=== PATIENT | male | born 1965 | race African-American/Black ===

== ENCOUNTER 2024-12-31 10:07 | Inpatient (IN) ==
--- NOTE | 2024-12-31 11:04 | DR.EXTPAIN ---
HPI Time seen Time Seen by Provider: 12/31/24 11:04 PCP Primary Care Physician: [facility] Complaint/Symptoms Chief Complaint:: Patient sent from [facility] @ [facility] with pain and edema to left forearm x 3 weeks. He has a 50 cent size ulcer left proximal anterior forearm. He states he scratched it in the window of his truck. COVID-19 Coronavirus risk:travel/contact w/high risk person: No Has patient experienced Coronavirus symptoms: No Source History Provided: Patient and Other Mode of arrival Mode of Arrival: Ambulatory Timing Onset of Chief Complaint: 12/10/24 PMH PMH Past Medical History: Yes Past Medical History: Diabetes, Headaches and Hypertension Past Surgical History: No Family History History of Family Medical Conditions: No Social History Does patient currently use any type of tobacco product: No Have you used tobacco products in the last 12 months: No Type of Tobacco Use: None Does any household member use tobacco: No Alcohol Use: None Do you use any recreational Drugs:: No Lives With: Alone Lives Where: Home Travel Risk Coronavirus risk:travel/contact w/high risk person: No Has patient experienced Coronavirus symptoms: No Infectious screening In the last 2 months have you had wt loss of >10#?: NO Have you had fever, night sweats or hemotysis?: No Have you traveled outside the country in the last 6 months?: No Isolation: Standard PE Vital Signs Vitals: Vital Signs Temperature 97.7 F Pulse Rate 105 Respiratory Rate 18 Respiratory Rate 17 Blood Pressure 144/75 Blood Pressure 181/79 O2 Sat by Pulse Oximetry 99 ROR Labs Reviewed 12/31/24 11:04 12/31/24 11:04 Laboratory: WBC 20.2 X10^3/uL (3.6-10.0) H 12/31/24 11:04 RBC 4.28 X10^6/uL (4.7-6.0) L 12/31/24 11:04 Hgb 11.5 g/dL (13.5-18.0) L 12/31/24 11:04 Hct 34.4 % (42.0-54.0) L 12/31/24 11:04 MCV 80.5 fL (80.0-100.0) 12/31/24 11:04 MCH 27.0 pg (27.0-34.0) 12/31/24 11:04 MCHC 33.5 g/dL (33.0-35.0) 12/31/24 11:04 RDW 15.6 % (11.6-16.5) 12/31/24 11:04 Plt Count 323 X10^3/uL (150.0-450.0) 12/31/24 11:04 Plt Count Comment Adequate (ADEQUATE) 12/31/24 11:04 MPV 9.7 fL (7.4-11.0) 12/31/24 11:04 Neut % (Auto) 83.8 % (42.0-75.0) H 12/31/24 11:04 Lymph % (Auto) 5.7 % (21.0-51.0) L 12/31/24 11:04 [place] % (Auto) 8.7 % (0.0-13.0) 12/31/24 11:04 Eos % (Auto) 0.5 % (0.9-2.9) L 12/31/24 11:04 Baso % (Auto) 1.3 % (0.2-1.0) H 12/31/24 11:04 Neut # (Auto) 16.9 x10^3/uL (2.2-4.8) H 12/31/24 11:04 Lymph # (Auto) 1.2 X10^3/uL (1.3-2.9) L 12/31/24 11:04 [place] # (Auto) 1.8 x10^3/uL (0.3-0.8) H 12/31/24 11:04 Eos # (Auto) 0.1 x10^3/uL (0.0-0.2) 12/31/24 11:04 Baso # (Auto) 0.3 X10^3/uL (0.0-0.1) H 12/31/24 11:04 Absolute Nucleated RBC 0.1 /100WBC 12/31/24 11:04 Total Counted 100 12/31/24 11:04 Neutrophils % (Manual) 69 % (39-76) 12/31/24 11:04 Band Neutrophils % 11 % (0-10) H 12/31/24 11:04 Lymphocytes % (Manual) 13 % (13-43) 12/31/24 11:04 Monocytes % (Manual) 7 % (4-9) 12/31/24 11:04 Atypical Lymphocytes Few 12/31/24 11:04 Plt Morphology Comment Normal (NORMAL) 12/31/24 11:04 RBC Morphology Normal (NORMAL) 12/31/24 11:04 Sodium 126 mmol/L (136-145) L 12/31/24 11:04 Corrected Sodium 134 mmol/L (136-145) L 12/31/24 11:04 Potassium 3.7 mmol/L (3.5-5.1) 12/31/24 11:04 Chloride 88 mmol/L (98-107) L 12/31/24 11:04 Carbon Dioxide 29.1 mmol/L (21-32) 12/31/24 11:04 BUN 16 mg/dL (7-18) 12/31/24 11:04 Creatinine 1.28 mg/dL (0.70-1.30) 12/31/24 11:04 Est GFR (MDRD) Af Amer > 60 (>60) 12/31/24 11:04 Est GFR (MDRD) Non-Af > 60 (>60) 12/31/24 11:04 Glucose 431 mg/dL (65-99) H 12/31/24 11:04 Lactic Acid 2.1 mmol/L (0.4-2.0) H 12/31/24 11:04 Calcium 8.5 mg/dL (8.5-10.1) 12/31/24 11:04 Corrected Calcium 9.9 mg/dL (8.5-10.1) 12/31/24 11:04 Total Bilirubin 1.00 mg/dL (0.2-1.0) 12/31/24 11:04 AST 21 Units/L (15-37) 12/31/24 11:04 ALT 35 Units/L (12-78) 12/31/24 11:04 Alkaline Phosphatase 130 Units/L (46-116) H 12/31/24 11:04 B-Natriuretic Peptide 93.5 pg/mL (0-79) H 12/31/24 11:04 Total Protein 8.9 g/dL (6.4-8.2) H 12/31/24 11:04 Albumin 2.3 g/dL (3.4-5.0) L 12/31/24 11:04 Globulin 6.6 g/dL (2.5-4.5) H 12/31/24 11:04 Albumin/Globulin Ratio 0.3 Ratio (1.1-2.1) L 12/31/24 11:04 Acetone, Semi-Quant Negative (NEGATIVE) 12/31/24 11:04 Opioid Opioid Risk Tool Age (Wes box if 16-45): No History of Preadolescent Sexual Abuse: No Total: 0 Total Score Risk Category: Low Risk Copyright: Agustin KEY predicting aberrant behaviors Discharge Plan Diagnosis Discharge Problem: Sepsis, Left arm cellulitis Discharge Plan Patient Disposition: ADMITTED INPATIENT Condition: Stable
[2024-12-31 11:20] LABS: MEAN PLATELET VOLUME 9.7 fL (7.4-11.0); RED CELL DISTRIBUTION WIDTH 15.6 % (11.6-16.5)
[2024-12-31] MEDS: TORADOL 30 MG VIAL IVP ONE (11:23)
[2024-12-31 11:28] LABS: COR CA(FOR HYPOALB) 9.9 mg/dL (8.5-10.1); COR NA(FOR HYPERGLY) 134 mmol/L (136-145); CREATININE 1.28 mg/dL (0.70-1.30); eGFR NON BLACK RACES > 60 (>60)
[2024-12-31 11:47] LABS: BAND NEUTROPHILS % 11 % (0-10); PLATELET MORPHOLOGY COMMENT NORMAL (NORMAL)
[2024-12-31] MEDS: VANCOMYCIN IV *PREMIX 1 G/200 ML BAG 1 G/200 ML PIGGYBACK IV ONE ×2 (12:14→14:17)
[2024-12-31] MEDS: NS 1,000 ML IV 1,000 ML IV SCH (12:15)
[2024-12-31] MEDS ORDERED: PRECEDEX INJ VIAL ONE (13:04)
[2024-12-31] MEDS ORDERED: XYLOCAINE 2 % (PLAIN) ONE (13:04)
[2024-12-31] MEDS ORDERED: ULTANE GAS IN ONE (13:04)
[2024-12-31] MEDS ORDERED: KETAMINE HCL ONE (13:04)
--- NOTE | 2024-12-31 13:54 | CT ---
EXAM: CT LEFT UPPER EXTREMITY WITHOUT IV CONTRAST HISTORY: left upper arm cellulitis; COMPARISON: Radiographs from same date TECHNIQUE: Axial CT images were obtained through the left upper extremity without IV contrast. Coronal and sagittal reformatted images were included. All CT scans at this facility use dose modulation, iterative reconstruction, and/or weight based dosing when appropriate to reduce radiation dose to as low as reasonably achievable. FINDINGS: Moderate diffuse left upper arm and forearm skin thickening with subcutaneous edema. There is clustered subcutaneous soft tissue gas dorsal to the elbow as well as the upper arm and proximal forearm over 13 cm distance. No focal cortical destruction or aggressive periosteal reaction. No large elbow effusion. IMPRESSION: Diffuse subcutaneous edema. Scattered dorsal soft tissue gas in the upper arm, elbow, and proximal forearm, concerning for necrotizing infection. THIS IS AN ELECTRONICALLY VERIFIED FINAL REPORT 12/31/2024 1:50 PM - Electronically signed by José Rdz MD
[2024-12-31] MEDS: CATAPRES TAB 0.1 MG PO ONE (14:03)
[2024-12-31] MEDS: NovoLIN R (or HumuLIN R) SUBCUT PRN (14:04)
[2024-12-31] MEDS: NS 1,000 ML IV 1,000 ML ONE (14:17)
[2024-12-31] MEDS: MERREM VIAL 1 G in NS 100 ML IV 100 ML IV SCH (15:43)
[2024-12-31] MEDS: NORMODYNE INJ 20 MG VIAL IV PRN (15:43)
[2024-12-31] MEDS: ZOFRAN INJ 4 MG VIAL ONE (16:41)
[2024-12-31] MEDS: FENTANYL VIAL INJ 100 mcg ONE (16:41)
[2024-12-31] MEDS: DIPRIVAN VIAL 20 ML ONE (16:41)
[2024-12-31] MEDS: VERSED ONE (16:41)
[2024-12-31] MEDS: PEPCID 20 MG VIAL ONE (16:56)
[2024-12-31] MEDS: VERSED IVP PRN (16:57)
[2024-12-31] MEDS: NS 1,000 ML IV 500 ML IV PRN (16:58)
[2024-12-31] MEDS: PEPCID 20 MG VIAL IVP PRN (17:00)
[2024-12-31] MEDS: ZOFRAN INJ 4 MG VIAL IVP PRN (17:00)
[2024-12-31] MEDS: DIPRIVAN VIAL 150 ML IVP PRN (17:04)
[2024-12-31] MEDS: KETAMINE HCL IV PRN (17:04)
[2024-12-31] MEDS ORDERED: XYLOCAINE 2 % (PLAIN) PRN (17:04)
[2024-12-31] MEDS: PRECEDEX INJ VIAL IVP PRN (17:04)
[2024-12-31] MEDS: FENTANYL VIAL INJ 100 mcg IVP PRN (17:04)
[2024-12-31] MEDS: OFIRMEV IV 1000 MG VIAL 1,000 MG/100 ML VIAL IV ONE (17:10)
[2024-12-31] MEDS: POLYMYXIN B SULFATE ONE (17:11)
[2024-12-31] MEDS: OFIRMEV IV 1000 MG VIAL 1,000 MG/100 ML VIAL IV PRN (17:20)
[2024-12-31] MEDS: NEO-SYNEPHRINE INJ IVP PRN (17:29)
[2024-12-31] MEDS ORDERED: DILAUDID INJ IVP PRN (17:30)
[2024-12-31] MEDS ORDERED: REGLAN INJ 10 MG VIAL IVP PRN (17:30)
[2024-12-31] MEDS ORDERED: BENADRYL INJ 50 MG VIAL IVP PRN (17:30)
[2024-12-31] MEDS ORDERED: ZOFRAN INJ 4 MG VIAL IVP PRN (17:30)
[2024-12-31] MEDS ORDERED: BARHEMSYS INJ IVP PRN (17:30)
[2024-12-31] MEDS: DILAUDID INJ IVP PRN (17:44)
[2024-12-31] MEDS ORDERED: MORPHINE SULFATE INJ 2 MG INJ IVP PRN (18:01)
[2024-12-31] MEDS ORDERED: NS 1/2 1,000 ML IV 1,000 ML IV ONE (18:28)
[2024-12-31] MEDS: CLEOCIN VIAL 600 MG 900 MG in D5W 50 ML IV 50 ML IV SCH (18:32)
[2024-12-31] MEDS: NS 1/2 1,000 ML IV 1,000 ML IV SCH (18:32)
[2024-12-31] MEDS: DILAUDID INJ ONE (18:37)
[2024-12-31] MEDS: TORADOL 30 MG VIAL ONE (18:38)
[2024-12-31] MEDS: VANCOMYCIN HCL 1 G in D5W 250 ML IV 250 ML IV SCH (20:23)
[2024-12-31] MEDS: SNACK - Diabetic Appropriate PO SCH (21:19)
[2025-01-01] MEDS: NS 250 ML IV 250 ML IV ONE (02:10)
[2025-01-01 04:52] LABS: MEAN PLATELET VOLUME 9.2 fL (7.4-11.0); RED CELL DISTRIBUTION WIDTH 15.5 % (11.6-16.5)
[2025-01-01 05:01] LABS: COR CA(FOR HYPOALB) 9.7 mg/dL (8.5-10.1); COR NA(FOR HYPERGLY) 132 mmol/L (136-145); CREATININE 1.11 mg/dL (0.70-1.30); eGFR NON BLACK RACES > 60 (>60)
--- NOTE | 2025-01-01 06:13 | RAD ---
EXAM: FOREARM, LEFT HISTORY: INFECTED FOREARM; COMPARISON: None. TECHNIQUE: Two-vi ew series of the left. FINDINGS: Normal alignment of the left forearm. No radiographic evidence of an acute fracture or cortical stress reaction. No periosteal reaction or bony erosion identified. Soft tissue edema of the forearm is demonstrated with small quantities of gas suspected along the dorsal margin around the elbow. A large olecranon process enthesophyte is noted. There is mild DJD of the elbow. Vascular calcifications are seen within the antecubital fossa. IMPRESSION: Generalized soft tissue edema of the forearm, in keeping with cellulitis, with small amounts of soft tissue gas questioned along the dorsal margin of the arm around the elbow, raising concern for localized necrotizing fasciitis. Surgical consultation is recommended No radiographic evidence osteomyelitis. Additional degenerative findings are detailed above THIS IS AN ELECTRONICALLY VERIFIED FINAL REPORT 01/01/2025 6:05 AM - Electronically signed by Phill Garcia MD
[2025-01-01] MEDS ORDERED: CONSULT PHARMACY - POTASSIUM & MAGNESIUM XX SCH (07:00)
[2025-01-01] MEDS: K-DUR TAB 20 MEQ PO SCH (08:04)
[2025-01-01] MEDS: MAG-OX TAB PO SCH (08:04)
--- NOTE | 2025-01-01 08:48 | DR.PROGNOT ---
HOSPITAL PROGRESS NOTE Progress Note for Day of: Progress Note Date: 01/01/25 Chief Complaint Chief Complaint: Left arm pain is less as well as the edema. Dressings are intact with no significant drainage. Cultures are showing staph cocci and gram-negative bacteria. White count is 18.1, blood sugar 326, BUN/creatinine and liver function tests are normal as well as the lactic acid. Patient is afebrile, the left arm is still edematous, all distal pulses are positive. Same IV antibiotics and will keep the dressing intact. Past Medical Family Social History Allergies: Allergies No Known Allergies Allergy (Verified 12/31/24 13:30) Vital Signs Vital Signs: Vital Signs Temperature 98.7 F Temperature 99.4 F Pulse Rate [Right Radial] 89 Pulse Rate [Right Radial] 89 Respiratory Rate 20 Respiratory Rate 19 Blood Pressure [Left Arm] 157/76 Blood Pressure [Left Arm] 156/72 O2 Sat by Pulse Oximetry 100 O2 Sat by Pulse Oximetry 99 Physical Exam Oriented: Normal Eyes: Normal Ear: Normal Nose: Normal Throat: Normal Respiratory: Normal Cardiovascular: Normal GI:Auscultation: Normal Skin: Other (Dressings are intact with normal range of motion of the hand and fingers.) Mood Description: Calm Speech Pattern: Clear, Appropriate and Delayed Laboratory and Diagnostics 01/01/25 04:33 01/01/25 04:33 Labs: 12/31/24 17:18 Arm - Left Wound Gram Stain - Final 12/31/24 13:24 Arm - Drainage Wound Gram Stain - Final Laboratory WBC 18.1 X10^3/uL (3.6-10.0) H 01/01/25 04:33 RBC 3.60 X10^6/uL (4.7-6.0) L 01/01/25 04:33 Hgb 10.0 g/dL (13.5-18.0) L 01/01/25 04:33 Hct 28.9 % (42.0-54.0) L 01/01/25 04:33 MCV 80.2 fL (80.0-100.0) 01/01/25 04:33 MCH 27.7 pg (27.0-34.0) 01/01/25 04:33 MCHC 34.5 g/dL (33.0-35.0) 01/01/25 04:33 RDW 15.5 % (11.6-16.5) 01/01/25 04:33 Plt Count 331 X10^3/uL (150.0-450.0) 01/01/25 04:33 Plt Count Comment Adequate (ADEQUATE) 12/31/24 11:04 MPV 9.2 fL (7.4-11.0) 01/01/25 04:33 Neut % (Auto) 78.7 % (42.0-75.0) H 01/01/25 04:33 Lymph % (Auto) 8.5 % (21.0-51.0) L 01/01/25 04:33 [place] % (Auto) 12.2 % (0.0-13.0) 01/01/25 04:33 Eos % (Auto) 0.5 % (0.9-2.9) L 01/01/25 04:33 Baso % (Auto) 0.1 % (0.2-1.0) L 01/01/25 04:33 Neut # (Auto) 14.2 x10^3/uL (2.2-4.8) H 01/01/25 04:33 Lymph # (Auto) 1.5 X10^3/uL (1.3-2.9) 01/01/25 04:33 [place] # (Auto) 2.2 x10^3/uL (0.3-0.8) H 01/01/25 04:33 Eos # (Auto) 0.1 x10^3/uL (0.0-0.2) 01/01/25 04:33 Baso # (Auto) 0.0 X10^3/uL (0.0-0.1) 01/01/25 04:33 Absolute Nucleated RBC 0.0 /100WBC 01/01/25 04:33 Total Counted 100 12/31/24 11:04 Neutrophils % (Manual) 69 % (39-76) 12/31/24 11:04 Band Neutrophils % 11 % (0-10) H 12/31/24 11:04 Lymphocytes % (Manual) 13 % (13-43) 12/31/24 11:04 Monocytes % (Manual) 7 % (4-9) 12/31/24 11:04 Atypical Lymphocytes Few 12/31/24 11:04 Plt Morphology Comment Normal (NORMAL) 12/31/24 11:04 RBC Morphology Normal (NORMAL) 12/31/24 11:04 Sodium 127 mmol/L (136-145) L 01/01/25 04:33 Corrected Sodium 132 mmol/L (136-145) L 01/01/25 04:33 Potassium 3.3 mmol/L (3.5-5.1) L 01/01/25 04:33 Chloride 91 mmol/L (98-107) L 01/01/25 04:33 Carbon Dioxide 27.6 mmol/L (21-32) 01/01/25 04:33 BUN 15 mg/dL (7-18) 01/01/25 04:33 Creatinine 1.11 mg/dL (0.70-1.30) 01/01/25 04:33 Est GFR (MDRD) Af Amer > 60 (>60) 01/01/25 04:33 Est GFR (MDRD) Non-Af > 60 (>60) 01/01/25 04:33 Glucose 306 mg/dL (65-99) H 01/01/25 04:33 POC Glucose (mg/dL) 288 mg/dL (65-99) H 01/01/25 05:16 Hemoglobin A1c 12.0 % 12/31/24 19:06 Lactic Acid 1.9 mmol/L (0.4-2.0) 12/31/24 23:21 Calcium 7.6 mg/dL (8.5-10.1) L 01/01/25 04:33 Corrected Calcium 9.7 mg/dL (8.5-10.1) 01/01/25 04:33 Magnesium 1.6 mg/dL (2.0-2.9) L 01/01/25 04:33 Total Bilirubin 1.10 mg/dL (0.2-1.0) H 01/01/25 04:33 AST 18 Units/L (15-37) 01/01/25 04:33 ALT 26 Units/L (12-78) 01/01/25 04:33 Alkaline Phosphatase 107 Units/L (46-116) 01/01/25 04:33 B-Natriuretic Peptide 93.5 pg/mL (0-79) H 12/31/24 11:04 Total Protein 7.1 g/dL (6.4-8.2) 01/01/25 04:33 Albumin 1.4 g/dL (3.4-5.0) L 01/01/25 04:33 Globulin 5.7 g/dL (2.5-4.5) H 01/01/25 04:33 Albumin/Globulin Ratio 0.2 Ratio (1.1-2.1) L 01/01/25 04:33 Acetone, Semi-Quant Negative (NEGATIVE) 12/31/24 11:04 Assessment and Plan 1: Deep abscesses and cellulitis left arm and forearm with infected skin ulcers. S/p debridement and drainage with packing. 2: Diabetes mellitus, on insulin coverage. Patient needs future follow-up by PCP. Problem Patient Problems: Patient Problems Left arm cellulitis (Acute) L03.114 Sepsis (Acute) A41.9
[2025-01-01] MEDS ORDERED: PHARMACY CONSULT XX SCH (09:00)
[2025-01-01] MEDS: LOVENOX INJ 40 MG SYR SC SCH (09:15)
[2025-01-01] MEDS: NS 1/2 1,000 ML IV 1,000 ML IV ONE (09:21)
[2025-01-01] MEDS: NS + KCL 20 MEQ/L 1,000 ML with MAGNESIUM SULFATE 50% INJ VIAL 1 G IV SCH (09:45)
[2025-01-01] MEDS: NORCO 10/325 TAB PO PRN (09:46)
[2025-01-01] MEDS: ZESTRIL TAB 5 MG PO SCH ×2 (09:46→22:12)
--- NOTE | 2025-01-01 09:57 | PCM.PROG ---
Progress Note Progress Note for Day of Date of Exam: 01/01/25 Subjective Subjective: Patient seen at bedside, no acute events overnight. He was admitted for severe left upper extremity necrotizing infection which required immediate surgical intervention. He underwent debridement yesterday. He has been doing well overnight. His pain has been well-controlled. His blood pressure has been elevated this morning. He states he has been diagnosed with hypertension and diabetes but does not take any medicines. He is currently on IV antibiotics, cultures pending. Labs/imaging reviewed: - WBC 18.1 hemoglobin 10 potassium 3.3 creatinine 1.11 magnesium 1.6 glucose 288 -A1c 12/31/2024 12% - Wound cultures pending - Blood cultures pending -CT left extremity reviewed Plan: Continue IV antibiotics, follow surgery recommendations. Keep arm elevated and in the sling. Follow-up pending cultures. Continue pain control. Switch morphine to [place]. Replace electrolytes as per protocol. Continue hydration. Continue sliding scale insulin. Add lisinopril 5 mg daily. Add metformin 500 mg BID. Wound care and dressing change as per nursing. Monitor a.m. labs and imaging. Time spent for clinical assessment, reviewing labs and imaging, physical exam, decision making and documentation greater than 45 minutes. Past Medical Family Social History Allergies: Allergies No Known Allergies Allergy (Verified 12/31/24 13:30) Vital Signs and I&O's Vital Signs: Vital Signs Temperature 98.7 F Temperature 99.4 F Pulse Rate [Right Radial] 89 Pulse Rate [Right Radial] 89 Respiratory Rate 20 Respiratory Rate 19 Blood Pressure [Left Arm] 157/76 Blood Pressure [Left Arm] 156/72 O2 Sat by Pulse Oximetry 100 O2 Sat by Pulse Oximetry 99 Intake and Output: Intake & Output 12/29/24 12/30/24 12/31/24 01/01/25 23:59 23:59 23:59 23:59 Intake Total 1700 / 1700 1683 / 1683 Output Total 1020 / 1020 1180 / 1180 Balance 680 / 680 503 / 503 Physical Exam Oriented: Normal Eyes: Normal Ear: Normal Nose: Normal Throat: Normal Respiratory: Normal Cardiovascular: Normal Auscultation: Bowel Sounds: Normal Palpation: Normal Tenderness: Normal Skin: Other (Dressings are intact with normal range of motion of the hand and fingers.) Musculoskeletal: Left, Arm and Forearm Psychiatric: Normal Mood Description: Calm Affect: Normal Speech Pattern: Clear and Appropriate Laboratory and Diagnostics 01/01/25 04:33 01/01/25 04:33 Labs: 12/31/24 17:18 Arm - Left Wound Gram Stain - Final 12/31/24 17:18 Arm - Left Wound Culture - Preliminary 12/31/24 17:19 Arm - Left Wound Culture - Preliminary 12/31/24 13:24 Arm - Drainage Wound Gram Stain - Final 12/31/24 13:24 Arm - Drainage Wound Culture - Preliminary Laboratory WBC 18.1 X10^3/uL (3.6-10.0) H 01/01/25 04:33 RBC 3.60 X10^6/uL (4.7-6.0) L 01/01/25 04:33 Hgb 10.0 g/dL (13.5-18.0) L 01/01/25 04:33 Hct 28.9 % (42.0-54.0) L 01/01/25 04:33 MCV 80.2 fL (80.0-100.0) 01/01/25 04:33 MCH 27.7 pg (27.0-34.0) 01/01/25 04:33 MCHC 34.5 g/dL (33.0-35.0) 01/01/25 04:33 RDW 15.5 % (11.6-16.5) 01/01/25 04:33 Plt Count 331 X10^3/uL (150.0-450.0) 01/01/25 04:33 Plt Count Comment Adequate (ADEQUATE) 12/31/24 11:04 MPV 9.2 fL (7.4-11.0) 01/01/25 04:33 Neut % (Auto) 78.7 % (42.0-75.0) H 01/01/25 04:33 Lymph % (Auto) 8.5 % (21.0-51.0) L 01/01/25 04:33 [place] % (Auto) 12.2 % (0.0-13.0) 01/01/25 04:33 Eos % (Auto) 0.5 % (0.9-2.9) L 01/01/25 04:33 Baso % (Auto) 0.1 % (0.2-1.0) L 01/01/25 04:33 Neut # (Auto) 14.2 x10^3/uL (2.2-4.8) H 01/01/25 04:33 Lymph # (Auto) 1.5 X10^3/uL (1.3-2.9) 01/01/25 04:33 [place] # (Auto) 2.2 x10^3/uL (0.3-0.8) H 01/01/25 04:33 Eos # (Auto) 0.1 x10^3/uL (0.0-0.2) 01/01/25 04:33 Baso # (Auto) 0.0 X10^3/uL (0.0-0.1) 01/01/25 04:33 Absolute Nucleated RBC 0.0 /100WBC 01/01/25 04:33 Total Counted 100 12/31/24 11:04 Neutrophils % (Manual) 69 % (39-76) 12/31/24 11:04 Band Neutrophils % 11 % (0-10) H 12/31/24 11:04 Lymphocytes % (Manual) 13 % (13-43) 12/31/24 11:04 Monocytes % (Manual) 7 % (4-9) 12/31/24 11:04 Atypical Lymphocytes Few 12/31/24 11:04 Plt Morphology Comment Normal (NORMAL) 12/31/24 11:04 RBC Morphology Normal (NORMAL) 12/31/24 11:04 Sodium 127 mmol/L (136-145) L 01/01/25 04:33 Corrected Sodium 132 mmol/L (136-145) L 01/01/25 04:33 Potassium 3.3 mmol/L (3.5-5.1) L 01/01/25 04:33 Chloride 91 mmol/L (98-107) L 01/01/25 04:33 Carbon Dioxide 27.6 mmol/L (21-32) 01/01/25 04:33 BUN 15 mg/dL (7-18) 01/01/25 04:33 Creatinine 1.11 mg/dL (0.70-1.30) 01/01/25 04:33 Est GFR (MDRD) Af Amer > 60 (>60) 01/01/25 04:33 Est GFR (MDRD) Non-Af > 60 (>60) 01/01/25 04:33 Glucose 306 mg/dL (65-99) H 01/01/25 04:33 POC Glucose (mg/dL) 288 mg/dL (65-99) H 01/01/25 05:16 Hemoglobin A1c 12.0 % 12/31/24 19:06 Lactic Acid 1.9 mmol/L (0.4-2.0) 12/31/24 23:21 Calcium 7.6 mg/dL (8.5-10.1) L 01/01/25 04:33 Corrected Calcium 9.7 mg/dL (8.5-10.1) 01/01/25 04:33 Magnesium 1.6 mg/dL (2.0-2.9) L 01/01/25 04:33 Total Bilirubin 1.10 mg/dL (0.2-1.0) H 01/01/25 04:33 AST 18 Units/L (15-37) 01/01/25 04:33 ALT 26 Units/L (12-78) 01/01/25 04:33 Alkaline Phosphatase 107 Units/L (46-116) 01/01/25 04:33 B-Natriuretic Peptide 93.5 pg/mL (0-79) H 12/31/24 11:04 Total Protein 7.1 g/dL (6.4-8.2) 01/01/25 04:33 Albumin 1.4 g/dL (3.4-5.0) L 01/01/25 04:33 Globulin 5.7 g/dL (2.5-4.5) H 01/01/25 04:33 Albumin/Globulin Ratio 0.2 Ratio (1.1-2.1) L 01/01/25 04:33 Acetone, Semi-Quant Negative (NEGATIVE) 12/31/24 11:04 Plan (1) Necrotizing soft tissue infection: Status: Acute (2) Left arm cellulitis: Status: Acute (3) Sepsis: Status: Acute Qualifiers: Sepsis type: sepsis due to unspecified organism Sepsis acute organ dysfunction status: without acute organ dysfunction Qualified Code(s): A41.9 - Sepsis, unspecified organism (4) Hypertension: Status: Chronic Qualifiers: Hypertension type: unspecified Qualified Code(s): I10 - Essential (primary) hypertension (5) Uncontrolled diabetes mellitus: Status: Chronic Qualifiers: Diabetes mellitus type: type 2 Glycemic state: with hyperglycemia Q ualified Code(s): E11.65 - Type 2 diabetes mellitus with hyperglycemia (6) Hypokalemia: Status: Acute (7) Hypomagnesemia: Status: Acute
[2025-01-01 10:56] LABS: CREATININE 1.07 mg/dL (0.70-1.30)
[2025-01-01] MEDS: APRESOLINE INJ 20 MG VIAL IVP PRN (11:56)
--- NOTE | 2025-01-01 16:26 | DR.H&P ---
H&P History & Physical for Day of: H&P Date: 12/31/24 Chief Complaint Chief Complaint: left arm pain and redness History of Present Illness History of Present Illness: Patient is a 59-year-old male that presented initially to [facility] for left arm pain and swelling. He is a light truck driver and felt an "itch" in this area about 2-3 weeks ago but it has just got progressively worse and started peeling "a day or so ago". Pt reports significant pain in the area along with "pins and needle" sensations. Denies any known fever but reports that he has been feeling very tired. Pt reports that he has been told in the past that he has diabetes but does not have a primary care provider, so he has not been taking medication for this. Labs/imaging: WBC 20.2, hemoglobin 11.5, platelets 323, corrected sodium 134, potassium 3.7, creatinine 1.28, glucose 431 lactic acid 2.1, A1c 12, CT of the left upper extremity revealed diffuse subcutaneous edema. Scattered dorsal soft tissue gas in the upper arm, elbow, and proximal forearm concerning for necrotizing infection. Patient was admitted for necrotizing fasciitis, sepsis, cellulitis, hyperglycemia due to uncontrolled diabetes. Surgical consultation was immediately obtained and patient is scheduled to go to the operating room. He was started on IV antibiotics clindamycin, vancomycin and meropenem. Cultures have been obtained. Continue with IV fluids. Place patient on sliding scale insulin. Keep him n.p.o. for now. Will continue closely monitor patient continue to follow-up labs/imaging. Time spent for clinical assessment, reviewing labs/imaging, physical exam, decision making and documentation greater than 45 mins. Past Medical History Past Medical History: Diabetes, Headaches and Hypertension Social History Does patient currently use any type of tobacco product: No Have you used tobacco products in the last 12 months: No Type of Tobacco Use: None Does any household member use tobacco: No Alcohol Use: None Drug Use: None Medications Home Medications: Home Medications Medication Instructions Recorded Confirmed Type NK 12/31/24 12/31/24 History Allergies Allergies Allergy/AdvReac Type Severity Reaction Status Date / Time No Known Allergies Allergy Verified 12/31/24 13:30 Labs 01/01/25 04:33 01/01/25 10:21 Labs: 12/31/24 17:18 Arm - Left Wound Gram Stain - Final 12/31/24 13:24 Arm - Drainage Wound Gram Stain - Final Laboratory WBC 18.1 X10^3/uL (3.6-10.0) H 01/01/25 04:33 RBC 3.60 X10^6/uL (4.7-6.0) L 01/01/25 04:33 Hgb 10.0 g/dL (13.5-18.0) L 01/01/25 04:33 Hct 28.9 % (42.0-54.0) L 01/01/25 04:33 MCV 80.2 fL (80.0-100.0) 01/01/25 04:33 MCH 27.7 pg (27.0-34.0) 01/01/25 04:33 MCHC 34.5 g/dL (33.0-35.0) 01/01/25 04:33 RDW 15.5 % (11.6-16.5) 01/01/25 04:33 Plt Count 331 X10^3/uL (150.0-450.0) 01/01/25 04:33 Plt Count Comment Adequate (ADEQUATE) 12/31/24 11:04 MPV 9.2 fL (7.4-11.0) 01/01/25 04:33 Neut % (Auto) 78.7 % (42.0-75.0) H 01/01/25 04:33 Lymph % (Auto) 8.5 % (21.0-51.0) L 01/01/25 04:33 [place] % (Auto) 12.2 % (0.0-13.0) 01/01/25 04:33 Eos % (Auto) 0.5 % (0.9-2.9) L 01/01/25 04:33 Baso % (Auto) 0.1 % (0.2-1.0) L 01/01/25 04:33 Neut # (Auto) 14.2 x10^3/uL (2.2-4.8) H 01/01/25 04:33 Lymph # (Auto) 1.5 X10^3/uL (1.3-2.9) 01/01/25 04:33 [place] # (Auto) 2.2 x10^3/uL (0.3-0.8) H 01/01/25 04:33 Eos # (Auto) 0.1 x10^3/uL (0.0-0.2) 01/01/25 04:33 Baso # (Auto) 0.0 X10^3/uL (0.0-0.1) 01/01/25 04:33 Absolute Nucleated RBC 0.0 /100WBC 01/01/25 04:33 Total Counted 100 12/31/24 11:04 Neutrophils % (Manual) 69 % (39-76) 12/31/24 11:04 Band Neutrophils % 11 % (0-10) H 12/31/24 11:04 Lymphocytes % (Manual) 13 % (13-43) 12/31/24 11:04 Monocytes % (Manual) 7 % (4-9) 12/31/24 11:04 Atypical Lymphocytes Few 12/31/24 11:04 Plt Morphology Comment Normal (NORMAL) 12/31/24 11:04 RBC Morphology Normal (NORMAL) 12/31/24 11:04 Sodium 127 mmol/L (136-145) L 01/01/25 04:33 Corrected Sodium 132 mmol/L (136-145) L 01/01/25 04:33 Potassium 3.3 mmol/L (3.5-5.1) L 01/01/25 04:33 Chloride 91 mmol/L (98-107) L 01/01/25 04:33 Carbon Dioxide 27.6 mmol/L (21-32) 01/01/25 04:33 BUN 15 mg/dL (7-18) 01/01/25 04:33 Creatinine 1.11 mg/dL (0.70-1.30) 01/01/25 04:33 Est GFR (MDRD) Af Amer > 60 (>60) 01/01/25 04:33 Est GFR (MDRD) Non-Af > 60 (>60) 01/01/25 04:33 Glucose 306 mg/dL (65-99) H 01/01/25 04:33 POC Glucose (mg/dL) 288 mg/dL (65-99) H 01/01/25 05:16 Hemoglobin A1c 12.0 % 12/31/24 19:06 Lactic Acid 1.9 mmol/L (0.4-2.0) 12/31/24 23:21 Calcium 7.6 mg/dL (8.5-10.1) L 01/01/25 04:33 Corrected Calcium 9.7 mg/dL (8.5-10.1) 01/01/25 04:33 Magnesium 1.6 mg/dL (2.0-2.9) L 01/01/25 04:33 Total Bilirubin 1.10 mg/dL (0.2-1.0) H 01/01/25 04:33 AST 18 Units/L (15-37) 01/01/25 04:33 ALT 26 Units/L (12-78) 01/01/25 04:33 Alkaline Phosphatase 107 Units/L (46-116) 01/01/25 04:33 B-Natriuretic Peptide 93.5 pg/mL (0-79) H 12/31/24 11:04 Total Protein 7.1 g/dL (6.4-8.2) 01/01/25 04:33 Albumin 1.4 g/dL (3.4-5.0) L 01/01/25 04:33 Globulin 5.7 g/dL (2.5-4.5) H 01/01/25 04:33 Albumin/Globulin Ratio 0.2 Ratio (1.1-2.1) L 01/01/25 04:33 Acetone, Semi-Quant Negative (NEGATIVE) 12/31/24 11:04 Review of Systems Constitutional: No Symptoms Reported Eyes: No Symptoms Reported ENT: No Symptoms Reported Respiratory: No Symptoms Reported Cardiovascular: No Symptoms Reported Gastrointestinal: No Symptoms Reported Genitourinary: No Symptoms Reported Musculoskeletal: Arm Pain (edema LUE) Skin: Rash and Other (erythema) Neurological: No Symptoms Reported Physical Exam Vital Signs: Vital Signs Temperature 98.7 F Temperature 99.4 F Pulse Rate [Right Radial] 89 Pulse Rate [Right Radial] 89 Respiratory Rate 20 Respiratory Rate 19 Blood Pressure [Left Arm] 157/76 Blood Pressure [Left Arm] 156/72 O2 Sat by Pulse Oximetry 100 O2 Sat by Pulse Oximetry 99 Oriented: Normal Eyes: Normal Ear: Normal Nose: Normal Throat: Normal Respiratory: Clear Throughout Cardiovascular: Normal : Normal Auscultation: Bowel Sounds: Normal Palpation: Normal Tenderness: Normal Skin: Red (LUE) and Tender Musculoskeletal: Left, Elbow, Forearm and Tender Psychiatric: Normal Mood Description: Calm and Appropriate Affect: Normal Speech Pattern: Clear and Appropriate Assessment/Plan (1) Necrotizing soft tissue infection: Status: Acute Plan: Immediate surgical consultation. Plan to go to the OR. IV antibiotics. IV fluids. Follow-up culture results. (2) Uncontrolled diabetes mellitus: Qualifiers: Diabetes mellitus type: type 2 Glycemic state: with hyperglycemia Q ualified Code(s): E11.65 - Type 2 diabetes mellitus with hyperglycemia Status: Chronic Plan: SSI (3) Hypokalemia: Status: Acute (4) Hypomagnesemia: Status: Acute (5) Sepsis: Qualifiers: Sepsis acute organ dysfunction status: without acute organ dysfunction Sepsis type: sepsis due to unspecified organism Qualified Code(s): A41.9 - Sepsis, unspecified organism Status: Acute (6) Cellulitis: Qualifiers: Site of cellulitis: extremity Site of cellulitis of extremity: upper extremity Laterality: left Qualified Code(s): L03.114 - Cellulitis of left upper limb Status: Acute Review H&P Reviewed: Yes Patient was examined?: Yes
[2025-01-01 16:33] LABS: CREATININE 1.07 mg/dL (0.70-1.30)
[2025-01-01] MEDS: PHARMACY CONSULT XX ONE (16:45)
[2025-01-01] MEDS: GLUCOPHAGE PO SCH (16:53)
[2025-01-01] MEDS: GLUCOPHAGE ONE (17:22)
[2025-01-01] MEDS ORDERED: SNACK - Diabetic Appropriate PO SCH (20:00)
[2025-01-01] MEDS: LANTUS SC SCH (22:13)
[2025-01-02 05:21] LABS: MEAN PLATELET VOLUME 10.1 fL (7.4-11.0); RED CELL DISTRIBUTION WIDTH 15.6 % (11.6-16.5)
[2025-01-02] MEDS ORDERED: GLUCOPHAGE ONE (05:38)
[2025-01-02 05:45] LABS: COR CA(FOR HYPOALB) 9.9 mg/dL (8.5-10.1); COR NA(FOR HYPERGLY) 136 mmol/L (136-145); CREATININE 0.92 mg/dL (0.70-1.30); eGFR NON BLACK RACES > 60 (>60)
[2025-01-02 05:51] LABS: BAND NEUTROPHILS % 6 % (0-10); PLATELET MORPHOLOGY COMMENT NORMAL (NORMAL)
[2025-01-02] MEDS: K-DUR TAB 20 MEQ PO SCH (08:05)
[2025-01-02] MEDS: STERILE WATER IRRIGATION IR ONE (09:20)
--- NOTE | 2025-01-02 09:33 | PCM.PROG ---
Progress Note Progress Note for Day of Date of Exam: 01/02/25 Subjective Subjective: Patient seen at bedside, no acute events overnight. He is doing well. His BP is better but still elevated. His glucose levels are still high. He was started on lantus yesterday. He states pain has been well-controlled. He is able to move his left hand. Dr Patrick will be coming later to change his dressing today. Wound Cx showing Gram + cocci. He remains on IV antibiotics. Labs/imaging reviewed: - WBC 16.5 hemoglobin 9.8 potassium 3.7 creatinine 0.92 magnesium 2.0 glucose 293 -A1c 12/31/2024 12% - Wound cultures: Gram + cocci - Blood cultures pending -CT left extremity reviewed Plan: Continue IV antibiotics, follow surgery recommendations. Keep arm elevated and in the sling. Follow-up final cultures. Continue pain control. Replace electrolytes as per protocol. Continue hydration. Continue sliding scale insulin. Change lisinopril to 10 mg BID. Continue metformin 500 mg BID. Increase Lantus to 15 units qHS. Wound care and dressing change as per nursing. Monitor a.m. labs and imaging. Time spent for clinical assessment, reviewing labs and imaging, physical exam, decision making and documentation greater than 45 minutes. Past Medical Family Social History Allergies: Allergies No Known Allergies Allergy (Verified 12/31/24 13:30) Vital Signs and I&O's Vital Signs: Vital Signs Temperature 98.6 F Temperature 98.8 F Pulse Rate [Right Radial] 99 Pulse Rate [Right Radial] 88 Respiratory Rate 20 Respiratory Rate 20 Respiratory Rate 20 Respiratory Rate 19 Blood Pressure [Left Arm] 167/80 Blood Pressure [Left Arm] 148/79 O2 Sat by Pulse Oximetry 96 O2 Sat by Pulse Oximetry 97 Intake and Output: Intake & Output 12/30/24 12/31/24 01/01/25 01/02/25 23:59 23:59 23:59 23:59 Intake Total 1700 / 1700 4897 / 4897 450 / 450 Output Total 1020 / 1020 4030 / 4030 1325 / 1325 Balance 680 / 680 867 / 867 -875 / -875 Physical Exam Oriented: Normal Eyes: Normal Ear: Normal Nose: Normal Throat: Normal Respiratory: Normal Cardiovascular: Normal Auscultation: Bowel Sounds: Normal Palpation: Normal Tenderness: Normal Skin: Red (LUE) and Tender Musculoskeletal: Left, Elbow, Forearm and Tender Psychiatric: Normal Mood Description: Calm and Appropriate Affect: Normal Speech Pattern: Clear, Appropriate and Delayed Laboratory and Diagnostics 01/02/25 04:40 01/02/25 04:40 Labs: 12/31/24 17:18 Arm - Left Wound Gram Stain - Final 12/31/24 17:18 Arm - Left Wound Culture - Preliminary 12/31/24 17:19 Arm - Left Wound Culture - Preliminary 12/31/24 13:24 Arm - Drainage Wound Gram Stain - Final 12/31/24 13:24 Arm - Drainage Wound Culture - Preliminary Laboratory WBC 16.5 X10^3/uL (3.6-10.0) H 01/02/25 04:40 RBC 3.55 X10^6/uL (4.7-6.0) L 01/02/25 04:40 Hgb 9.8 g/dL (13.5-18.0) L 01/02/25 04:40 Hct 28.6 % (42.0-54.0) L 01/02/25 04:40 MCV 80.5 fL (80.0-100.0) 01/02/25 04:40 MCH 27.7 pg (27.0-34.0) 01/02/25 04:40 MCHC 34.5 g/dL (33.0-35.0) 01/02/25 04:40 RDW 15.6 % (11.6-16.5) 01/02/25 04:40 Plt Count 321 X10^3/uL (150.0-450.0) 01/02/25 04:40 Plt Count Comment Adequate (ADEQUATE) 01/02/25 04:40 MPV 10.1 fL (7.4-11.0) 01/02/25 04:40 Neut % (Auto) 75.9 % (42.0-75.0) H 01/02/25 04:40 Lymph % (Auto) 10.4 % (21.0-51.0) L 01/02/25 04:40 [place] % (Auto) 12.7 % (0.0-13.0) 01/02/25 04:40 Eos % (Auto) 0.7 % (0.9-2.9) L 01/02/25 04:40 Baso % (Auto) 0.3 % (0.2-1.0) 01/02/25 04:40 Neut # (Auto) 12.6 x10^3/uL (2.2-4.8) H 01/02/25 04:40 Lymph # (Auto) 1.7 X10^3/uL (1.3-2.9) 01/02/25 04:40 [place] # (Auto) 2.1 x10^3/uL (0.3-0.8) H 01/02/25 04:40 Eos # (Auto) 0.1 x10^3/uL (0.0-0.2) 01/02/25 04:40 Baso # (Auto) 0.0 X10^3/uL (0.0-0.1) 01/02/25 04:40 Absolute Nucleated RBC 0.0 /100WBC 01/02/25 04:40 Total Counted 100 01/02/25 04:40 Neutrophils % (Manual) 71 % (39-76) 01/02/25 04:40 Band Neutrophils % 6 % (0-10) 01/02/25 04:40 Lymphocytes % (Manual) 13 % (13-43) 01/02/25 04:40 Monocytes % (Manual) 9 % (4-9) 01/02/25 04:40 Eosinophils % (Manual) 1 % (0-6) 01/02/25 04:40 Atypical Lymphocytes Few 12/31/24 11:04 Plt Morphology Comment Normal (NORMAL) 01/02/25 04:40 RBC Morphology Normal (NORMAL) 01/02/25 04:40 Sodium 132 mmol/L (136-145) L 01/02/25 04:40 Corrected Sodium 136 mmol/L (136-145) 01/02/25 04:40 Potassium 3.7 mmol/L (3.5-5.1) 01/02/25 04:40 Chloride 98 mmol/L (98-107) 01/02/25 04:40 Carbon Dioxide 28.4 mmol/L (21-32) 01/02/25 04:40 BUN 10 mg/dL (7-18) 01/02/25 04:40 Creatinine 0.92 mg/dL (0.70-1.30) 01/02/25 04:40 Est GFR (MDRD) Af Amer > 60 (>60) 01/02/25 04:40 Est GFR (MDRD) Non-Af > 60 (>60) 01/02/25 04:40 Glucose 287 mg/dL (65-99) H 01/02/25 04:40 POC Glucose (mg/dL) 293 mg/dL (65-99) H 01/02/25 05:13 Hemoglobin A1c 12.0 % 12/31/24 19:06 Lactic Acid 1.9 mmol/L (0.4-2.0) 12/31/24 23:21 Calcium 7.7 mg/dL (8.5-10.1) L 01/02/25 04:40 Corrected Calcium 9.9 mg/dL (8.5-10.1) 01/02/25 04:40 Magnesium 2.0 mg/dL (2.0-2.9) 01/02/25 04:40 Total Bilirubin 0.80 mg/dL (0.2-1.0) 01/02/25 04:40 AST 21 Units/L (15-37) 01/02/25 04:40 ALT 24 Units/L (12-78) 01/02/25 04:40 Alkaline Phosphatase 104 Units/L (46-116) 01/02/25 04:40 B-Natriuretic Peptide 93.5 pg/mL (0-79) H 12/31/24 11:04 Total Protein 7.2 g/dL (6.4-8.2) 01/02/25 04:40 Albumin 1.3 g/dL (3.4-5.0) L 01/02/25 04:40 Globulin 5.9 g/dL (2.5-4.5) H 01/02/25 04:40 Albumin/Globulin Ratio 0.2 Ratio (1.1-2.1) L 01/02/25 04:40 Vancomycin Trough 15.0 ug/mL (15-20) 01/01/25 15:49 Acetone, Semi-Quant Negative (NEGATIVE) 12/31/24 11:04 Plan (1) Necrotizing soft tissue infection: Status: Acute (2) Uncontrolled diabetes mellitus: Status: Chronic Qualifiers: Diabetes mellitus type: type 2 Glycemic state: with hyperglycemia Q ualified Code(s): E11.65 - Type 2 diabetes mellitus with hyperglycemia Plan: SSI (3) Hypokalemia: Status: Acute (4) Hypomagnesemia: Status: Acute (5) Sepsis: Status: Acute Qualifiers: Sepsis acute organ dysfunction status: without acute organ dysfunction Sepsis type: sepsis due to unspecified organism Qualified Code(s): A41.9 - Sepsis, unspecified organism (6) Cellulitis: Status: Acute Qualifiers: Laterality: left Site of cellulitis: extremity Site of cellulitis of extremity: upper extremity Qualified Code(s): L03.114 - Cellulitis of left upper limb
[2025-01-02] MEDS: ZESTRIL TAB 5 MG PO SCH (09:55)
[2025-01-02 10:10] LABS: CREATININE 0.92 mg/dL (0.70-1.30)
[2025-01-02] MEDS: DILAUDID INJ IVP PRN (14:32)
--- NOTE | 2025-01-02 15:13 | DR.PROGNOT ---
HOSPITAL PROGRESS NOTE Progress Note for Day of: Progress Note Date: 01/02/25 Chief Complaint Chief Complaint: Left arm pain is the same, Dressings are intact with moderate to drainage Cultures are showing gram-positive cocci and gram-negative bacteria. White count is 16.1, blood sugar 287, BUN/creatinine and liver function tests are normal as well as the lactic acid...Hgb 9.8 Vanco level 13.9 Patient is afebrile 99.2, the left arm is still edematous, all distal pulses are positive. Same IV antibiotics and will keep the dressing intact. Dressing was changed and all packings were removed, repacked lightly with iodoform, the arm was kept elevated in a sling. Past Medical Family Social History Allergies: Allergies No Known Allergies Allergy (Verified 12/31/24 13:30) Vital Signs Vital Signs: Vital Signs Temperature 99.2 F Temperature 98.6 F Pulse Rate [Right Radial] 104 Pulse Rate [Right Radial] 99 Respiratory Rate 20 Respiratory Rate 20 Respiratory Rate 20 Respiratory Rate 20 Respiratory Rate 20 Blood Pressure [Left Arm] 174/75 Blood Pressure [Left Arm] 167/80 O2 Sat by Pulse Oximetry 97 O2 Sat by Pulse Oximetry 96 Physical Exam Oriented: Normal Eyes: Normal Ear: Normal Nose: Normal Throat: Normal Respiratory: Normal Cardiovascular: Normal : Normal GI:Auscultation: Normal GI:Palpation: Normal GI: Tenderness: Normal Skin: Red (LUE) and Tender Musculoskeletal: Left, Elbow, Forearm and Tender Psychiatric: Normal Mood Description: Calm and Appropriate Affect: Normal Speech Pattern: Clear, Appropriate and Delayed Laboratory and Diagnostics 01/02/25 04:40 01/02/25 09:40 Labs: 12/31/24 11:31 Blood Blood Culture - Preliminary 12/31/24 11:04 Blood Blood Culture - Preliminary 12/31/24 17:18 Arm - Left Wound Gram Stain - Final 12/31/24 17:18 Arm - Left Wound Culture - Preliminary 12/31/24 17:19 Arm - Left Wound Culture - Preliminary 12/31/24 13:24 Arm - Drainage Wound Gram Stain - Final 12/31/24 13:24 Arm - Drainage Wound Culture - Preliminary Laboratory WBC 16.5 X10^3/uL (3.6-10.0) H 01/02/25 04:40 RBC 3.55 X10^6/uL (4.7-6.0) L 01/02/25 04:40 Hgb 9.8 g/dL (13.5-18.0) L 01/02/25 04:40 Hct 28.6 % (42.0-54.0) L 01/02/25 04:40 MCV 80.5 fL (80.0-100.0) 01/02/25 04:40 MCH 27.7 pg (27.0-34.0) 01/02/25 04:40 MCHC 34.5 g/dL (33.0-35.0) 01/02/25 04:40 RDW 15.6 % (11.6-16.5) 01/02/25 04:40 Plt Count 321 X10^3/uL (150.0-450.0) 01/02/25 04:40 Plt Count Comment Adequate (ADEQUATE) 01/02/25 04:40 MPV 10.1 fL (7.4-11.0) 01/02/25 04:40 Neut % (Auto) 75.9 % (42.0-75.0) H 01/02/25 04:40 Lymph % (Auto) 10.4 % (21.0-51.0) L 01/02/25 04:40 [place] % (Auto) 12.7 % (0.0-13.0) 01/02/25 04:40 Eos % (Auto) 0.7 % (0.9-2.9) L 01/02/25 04:40 Baso % (Auto) 0.3 % (0.2-1.0) 01/02/25 04:40 Neut # (Auto) 12.6 x10^3/uL (2.2-4.8) H 01/02/25 04:40 Lymph # (Auto) 1.7 X10^3/uL (1.3-2.9) 01/02/25 04:40 [place] # (Auto) 2.1 x10^3/uL (0.3-0.8) H 01/02/25 04:40 Eos # (Auto) 0.1 x10^3/uL (0.0-0.2) 01/02/25 04:40 Baso # (Auto) 0.0 X10^3/uL (0.0-0.1) 01/02/25 04:40 Absolute Nucleated RBC 0.0 /100WBC 01/02/25 04:40 Total Counted 100 01/02/25 04:40 Neutrophils % (Manual) 71 % (39-76) 01/02/25 04:40 Band Neutrophils % 6 % (0-10) 01/02/25 04:40 Lymphocytes % (Manual) 13 % (13-43) 01/02/25 04:40 Monocytes % (Manual) 9 % (4-9) 01/02/25 04:40 Eosinophils % (Manual) 1 % (0-6) 01/02/25 04:40 Atypical Lymphocytes Few 12/31/24 11:04 Plt Morphology Comment Normal (NORMAL) 01/02/25 04:40 RBC Morphology Normal (NORMAL) 01/02/25 04:40 Sodium 132 mmol/L (136-145) L 01/02/25 04:40 Corrected Sodium 136 mmol/L (136-145) 01/02/25 04:40 Potassium 3.7 mmol/L (3.5-5.1) 01/02/25 04:40 Chloride 98 mmol/L (98-107) 01/02/25 04:40 Carbon Dioxide 28.4 mmol/L (21-32) 01/02/25 04:40 BUN 10 mg/dL (7-18) 01/02/25 04:40 Creatinine 0.92 mg/dL (0.70-1.30) 01/02/25 09:40 Est GFR (MDRD) Af Amer > 60 (>60) 01/02/25 04:40 Est GFR (MDRD) Non-Af > 60 (>60) 01/02/25 04:40 Glucose 287 mg/dL (65-99) H 01/02/25 04:40 POC Glucose (mg/dL) 288 mg/dL (65-99) H 01/02/25 11:00 Hemoglobin A1c 12.0 % 12/31/24 19:06 Lactic Acid 1.9 mmol/L (0.4-2.0) 12/31/24 23:21 Calcium 7.7 mg/dL (8.5-10.1) L 01/02/25 04:40 Corrected Calcium 9.9 mg/dL (8.5-10.1) 01/02/25 04:40 Magnesium 2.0 mg/dL (2.0-2.9) 01/02/25 04:40 Total Bilirubin 0.80 mg/dL (0.2-1.0) 01/02/25 04:40 AST 21 Units/L (15-37) 01/02/25 04:40 ALT 24 Units/L (12-78) 01/02/25 04:40 Alkaline Phosphatase 104 Units/L (46-116) 01/02/25 04:40 B-Natriuretic Peptide 93.5 pg/mL (0-79) H 12/31/24 11:04 Total Protein 7.2 g/dL (6.4-8.2) 01/02/25 04:40 Albumin 1.3 g/dL (3.4-5.0) L 01/02/25 04:40 Globulin 5.9 g/dL (2.5-4.5) H 01/02/25 04:40 Albumin/Globulin Ratio 0.2 Ratio (1.1-2.1) L 01/02/25 04:40 Vancomycin Trough 13.9 ug/mL (15-20) L 01/02/25 09:40 Acetone, Semi-Quant Negative (NEGATIVE) 12/31/24 11:04 Assessment and Plan 1: Deep abscesses and cellulitis left arm and forearm with infected skin ulcers. S/p debridement , drainage and packing. 2: Diabetes mellitus, on insulin coverage. Patient needs future follow-up by PCP. Problem Patient Problems: Patient Problems Left arm cellulitis (Acute) L03.114 Sepsis (Acute) A41.9
[2025-01-02] MEDS: GLUCOPHAGE ONE (16:37)
[2025-01-02] MEDS: CONSULT PHARMACY - POTASSIUM & MAGNESIUM XX SCH (19:05)
[2025-01-02] MEDS: LANTUS SC SCH (20:56)
[2025-01-03] MEDS: NS 250 ML IV 250 ML IV ONE ×2 (00:24→04:18)
[2025-01-03 05:00] LABS: MEAN PLATELET VOLUME 9.9 fL (7.4-11.0); RED CELL DISTRIBUTION WIDTH 15.7 % (11.6-16.5)
[2025-01-03 05:14] LABS: COR CA(FOR HYPOALB) 9.9 mg/dL (8.5-10.1); COR NA(FOR HYPERGLY) 134 mmol/L (136-145); CREATININE 0.89 mg/dL (0.70-1.30); eGFR NON BLACK RACES > 60 (>60)
--- NOTE | 2025-01-03 09:58 | PCM.PROG ---
Progress Note Progress Note for Day of Date of Exam: 01/03/25 Subjective Subjective: Patient is resting in bed this morning. No acute events overnight. He continues to do well. Pain has been well-controlled. He is having dressing changed. General surgery-Dr Romero is following. Wound Cx showing Gram + cocci. He remains on IV antibiotics. Labs/imaging reviewed: - WBC 16, hemoglobin 10.1, platelets 324, sodium 134, potassium 4.0, creatinine 0.89, glucose 222. - A1c 12/31/2024 12% - Wound cultures: Gram + cocci - Blood cultures pending Plan: Continue IV antibiotics, follow surgery recommendations. Keep arm elevated and in the sling. Follow-up final cultures. Continue pain control. Replace electrolytes as per protocol. Continue hydration. Continue sliding scale insulin. Increase lisinopril to 20 mg BID. Continue metformin 500 mg BID. Increase Lantus to 20 units qHS. Wound care and dressing change as per nursing. Monitor a.m. labs and imaging. Time spent for clinical assessment, reviewing labs and imaging, physical exam, decision making and documentation greater than 45 minutes. Past Medical Family Social History Allergies: Allergies No Known Allergies Allergy (Verified 12/31/24 13:30) Review of Systems ROS changes noted: see HPI Vital Signs and I&O's Vital Signs: Vital Signs Temperature 98.7 F Temperature 99.7 F Pulse Rate [Right Radial] 91 Pulse Rate [Right Radial] 89 Pulse Rate [Right Radial] 96 Respiratory Rate 20 Respiratory Rate 19 Respiratory Rate 16 Blood Pressure [Right Arm] 169/79 Blood Pressure [Right Arm] 181/87 Blood Pressure [Right Arm] 185/87 Blood Pressure [Right Arm] 198/85 Blood Pressure [Right Arm] 188/89 Blood Pressure [Right Arm] 205/90 Blood Pressure [Right Arm] 210/97 O2 Sat by Pulse Oximetry 99 O2 Sat by Pulse Oximetry 94 Intake and Output: Intake & Output 12/31/24 01/01/25 01/02/25 01/03/25 23:59 23:59 23:59 23:59 Intake Total 1700 / 1700 4897 / 4897 2636 / 2636 918 / 918 Output Total 1020 / 1020 4030 / 4030 1325 / 1325 1100 / 1100 Balance 680 / 680 867 / 867 1311 / 1311 -182 / -182 Physical Exam Oriented: Normal Eyes: Normal Ear: Normal Nose: Normal Throat: Normal Respiratory: Normal Cardiovascular: Normal : Normal Auscultation: Bowel Sounds: Normal Tenderness: Normal Skin: Red (LUE) and Tender Musculoskeletal: Left, Elbow, Forearm and Tender Psychiatric: Normal Mood Description: Calm and Appropriate Affect: Normal Speech Pattern: Clear, Appropriate and Delayed Laboratory and Diagnostics 01/03/25 04:12 01/03/25 04:12 Labs: 12/31/24 11:31 Blood Blood Culture - Preliminary 12/31/24 11:04 Blood Blood Culture - Preliminary 12/31/24 17:18 Arm - Left Wound Gram Stain - Final 12/31/24 17:18 Arm - Left Wound Culture - Preliminary 12/31/24 17:19 Arm - Left Wound Culture - Preliminary 12/31/24 13:24 Arm - Drainage Wound Gram Stain - Final 12/31/24 13:24 Arm - Drainage Wound Culture - Preliminary Laboratory WBC 16.0 X10^3/uL (3.6-10.0) H 01/03/25 04:12 RBC 3.70 X10^6/uL (4.7-6.0) L 01/03/25 04:12 Hgb 10.1 g/dL (13.5-18.0) L 01/03/25 04:12 Hct 29.7 % (42.0-54.0) L 01/03/25 04:12 MCV 80.4 fL (80.0-100.0) 01/03/25 04:12 MCH 27.4 pg (27.0-34.0) 01/03/25 04:12 MCHC 34.0 g/dL (33.0-35.0) 01/03/25 04:12 RDW 15.7 % (11.6-16.5) 01/03/25 04:12 Plt Count 324 X10^3/uL (150.0-450.0) 01/03/25 04:12 Plt Count Comment Adequate (ADEQUATE) 01/02/25 04:40 MPV 9.9 fL (7.4-11.0) 01/03/25 04:12 Neut % (Auto) 72.6 % (42.0-75.0) 01/03/25 04:12 Lymph % (Auto) 12.0 % (21.0-51.0) L 01/03/25 04:12 [place] % (Auto) 14.2 % (0.0-13.0) H 01/03/25 04:12 Eos % (Auto) 0.9 % (0.9-2.9) 01/03/25 04:12 Baso % (Auto) 0.3 % (0.2-1.0) 01/03/25 04:12 Neut # (Auto) 11.6 x10^3/uL (2.2-4.8) H 01/03/25 04:12 Lymph # (Auto) 1.9 X10^3/uL (1.3-2.9) 01/03/25 04:12 [place] # (Auto) 2.3 x10^3/uL (0.3-0.8) H 01/03/25 04:12 Eos # (Auto) 0.1 x10^3/uL (0.0-0.2) 01/03/25 04:12 Baso # (Auto) 0.1 X10^3/uL (0.0-0.1) 01/03/25 04:12 Absolute Nucleated RBC 0.1 /100WBC 01/03/25 04:12 Total Counted 100 01/02/25 04:40 Neutrophils % (Manual) 71 % (39-76) 01/02/25 04:40 Band Neutrophils % 6 % (0-10) 01/02/25 04:40 Lymphocytes % (Manual) 13 % (13-43) 01/02/25 04:40 Monocytes % (Manual) 9 % (4-9) 01/02/25 04:40 Eosinophils % (Manual) 1 % (0-6) 01/02/25 04:40 Atypical Lymphocytes Few 12/31/24 11:04 Plt Morphology Comment Normal (NORMAL) 01/02/25 04:40 RBC Morphology Normal (NORMAL) 01/02/25 04:40 Sodium 131 mmol/L (136-145) L 01/03/25 04:12 Corrected Sodium 134 mmol/L (136-145) L 01/03/25 04:12 Potassium 4.0 mmol/L (3.5-5.1) 01/03/25 04:12 Chloride 98 mmol/L (98-107) 01/03/25 04:12 Carbon Dioxide 28.6 mmol/L (21-32) 01/03/25 04:12 BUN 6 mg/dL (7-18) L 01/03/25 04:12 Creatinine 0.89 mg/dL (0.70-1.30) 01/03/25 04:12 Est GFR (MDRD) Af Amer > 60 (>60) 01/03/25 04:12 Est GFR (MDRD) Non-Af > 60 (>60) 01/03/25 04:12 Glucose 222 mg/dL (65-99) H 01/03/25 04:12 POC Glucose (mg/dL) 268 mg/dL (65-99) H 01/03/25 05:26 Hemoglobin A1c 12.0 % 12/31/24 19:06 Lactic Acid 1.9 mmol/L (0.4-2.0) 12/31/24 23:21 Calcium 7.8 mg/dL (8.5-10.1) L 01/03/25 04:12 Corrected Calcium 9.9 mg/dL (8.5-10.1) 01/03/25 04:12 Magnesium 2.0 mg/dL (2.0-2.9) 01/02/25 04:40 Total Bilirubin 0.60 mg/dL (0.2-1.0) 01/03/25 04:12 AST 19 Units/L (15-37) 01/03/25 04:12 ALT 23 Units/L (12-78) 01/03/25 04:12 Alkaline Phosphatase 99 Units/L (46-116) 01/03/25 04:12 B-Natriuretic Peptide 93.5 pg/mL (0-79) H 12/31/24 11:04 Total Protein 7.5 g/dL (6.4-8.2) 01/03/25 04:12 Albumin 1.4 g/dL (3.4-5.0) L 01/03/25 04:12 Globulin 6.1 g/dL (2.5-4.5) H 01/03/25 04:12 Albumin/Globulin Ratio 0.2 Ratio (1.1-2.1) L 01/03/25 04:12 Vancomycin Trough 13.9 ug/mL (15-20) L 01/02/25 09:40 Acetone, Semi-Quant Negative (NEGATIVE) 12/31/24 11:04 Plan (1) Necrotizing soft tissue infection: Status: Acute Plan: General surgery following IV antibiotics. Wound care. IV fluids. Follow-up culture results. (2) Uncontrolled diabetes mellitus: Status: Chronic Qualifiers: Diabetes mellitus type: type 2 Glycemic state: with hyperglycemia Q ualified Code(s): E11.65 - Type 2 diabetes mellitus with hyperglycemia Plan: SSI (3) Hypokalemia: Status: Acute (4) Hypomagnesemia: Status: Acute (5) Sepsis: Status: Acute Qualifiers: Sepsis acute organ dysfunction status: without acute organ dysfunction Sepsis type: sepsis due to unspecified organism Qualified Code(s): A41.9 - Sepsis, unspecified organism (6) Cellulitis: Status: Acute Qualifiers: Site of cellulitis: extremity Site of cellulitis of extremity: upper extremity Laterality: left Qualified Code(s): L03.114 - Cellulitis of left upper limb
[2025-01-03] MEDS: CATAPRES TAB 0.1 MG PO SCH (16:57)
[2025-01-03] MEDS: GLUCOPHAGE ONE (17:50)
[2025-01-03 19:08] VITALS: BMI 29.0
[2025-01-03] MEDS: ZESTRIL TAB 20 MG PO SCH (20:19)
[2025-01-03] MEDS: LANTUS SC SCH (20:20)
[2025-01-03] MEDS: PHARMACY COMMENT IV ONE (21:46)
--- NOTE | 2025-01-03 22:57 | DR.PROGNOT ---
HOSPITAL PROGRESS NOTE Progress Note for Day of: Progress Note Date: 01/03/25 Chief Complaint Chief Complaint: Left arm pain is the same, Dressings were intact with moderate drainage. Cultures are showing gram-positive cocci and gram-negative bacteria. White count is elevted 16.1, blood sugar 287, BUN/creatinine and liver function tests are normal as well as the lactic acid...Hgb 9.8.. Vanco level 12.9 Patient is afebrile 100.., the left arm is still edematous, all distal pulses are positive. Same IV antibiotics ..local care ,arm elevation . . Past Medical Family Social History Allergies: Allergies No Known Allergies Allergy (Verified 12/31/24 13:30) Review Of Systems Changes in ROS: see HPI Vital Signs Vital Signs: Vital Signs Temperature 100 F Temperature 98.3 F Pulse Rate [Right Radial] 105 Pulse Rate [Right Radial] 104 Pulse Rate 104 Respiratory Rate 18 Respiratory Rate 20 Respiratory Rate 20 Blood Pressure [Right Arm] 189/86 Blood Pressure [Right Arm] 196/91 Blood Pressure [Right Arm] 197/83 Blood Pressure [Right Arm] 206/94 Blood Pressure [Right Arm] 205/95 Blood Pressure [Right Arm] 204/91 Blood Pressure [Right Arm] 208/99 Blood Pressure [Right Arm] 214/88 Blood Pressure [Right Arm] 204/92 Blood Pressure [Right Arm] 211/97 Blood Pressure [Right Arm] 208/95 Blood Pressure [Right Arm] 186/86 Blood Pressure [Right Arm] 189/86 Blood Pressure [Right Arm] 187/84 Blood Pressure [Right Arm] 192/84 Blood Pressure [Right Arm] 188/83 Blood Pressure [Right Arm] 195/88 Blood Pressure [Right Arm] 187/75 Blood Pressure [Right Arm] 177/85 Blood Pressure [Right Arm] 188/84 Blood Pressure [Right Arm] 189/86 O2 Sat by Pulse Oximetry 95 O2 Sat by Pulse Oximetry 96 O2 Sat by Pulse Oximetry 93 Physical Exam Oriented: Normal Eyes: Normal Ear: Normal Nose: Normal Throat: Normal Respiratory: Normal Cardiovascular: Normal : Normal GI:Auscultation: Normal GI:Palpation: Normal GI: Tenderness: Normal Skin: Red (LUE) and Tender Musculoskeletal: Left, Elbow, Forearm and Tender Psychiatric: Normal Mood Description: Calm and Appropriate Affect: Normal Speech Pattern: Clear, Appropriate and Delayed Laboratory and Diagnostics 01/03/25 04:12 01/03/25 04:12 Labs: 12/31/24 17:18 Arm - Left Wound Gram Stain - Final 12/31/24 17:18 Arm - Left Wound Culture - Preliminary 12/31/24 17:19 Arm - Left Wound Culture - Preliminary 12/31/24 13:24 Arm - Drainage Wound Gram Stain - Final 12/31/24 13:24 Arm - Drainage Wound Culture - Preliminary Staphylococcus Hominis 12/31/24 11:31 Blood Blood Culture - Preliminary 12/31/24 11:04 Blood Blood Culture - Preliminary Laboratory WBC 16.0 X10^3/uL (3.6-10.0) H 01/03/25 04:12 RBC 3.70 X10^6/uL (4.7-6.0) L 01/03/25 04:12 Hgb 10.1 g/dL (13.5-18.0) L 01/03/25 04:12 Hct 29.7 % (42.0-54.0) L 01/03/25 04:12 MCV 80.4 fL (80.0-100.0) 01/03/25 04:12 MCH 27.4 pg (27.0-34.0) 01/03/25 04:12 MCHC 34.0 g/dL (33.0-35.0) 01/03/25 04:12 RDW 15.7 % (11.6-16.5) 01/03/25 04:12 Plt Count 324 X10^3/uL (150.0-450.0) 01/03/25 04:12 Plt Count Comment Adequate (ADEQUATE) 01/02/25 04:40 MPV 9.9 fL (7.4-11.0) 01/03/25 04:12 Neut % (Auto) 72.6 % (42.0-75.0) 01/03/25 04:12 Lymph % (Auto) 12.0 % (21.0-51.0) L 01/03/25 04:12 [place] % (Auto) 14.2 % (0.0-13.0) H 01/03/25 04:12 Eos % (Auto) 0.9 % (0.9-2.9) 01/03/25 04:12 Baso % (Auto) 0.3 % (0.2-1.0) 01/03/25 04:12 Neut # (Auto) 11.6 x10^3/uL (2.2-4.8) H 01/03/25 04:12 Lymph # (Auto) 1.9 X10^3/uL (1.3-2.9) 01/03/25 04:12 [place] # (Auto) 2.3 x10^3/uL (0.3-0.8) H 01/03/25 04:12 Eos # (Auto) 0.1 x10^3/uL (0.0-0.2) 01/03/25 04:12 Baso # (Auto) 0.1 X10^3/uL (0.0-0.1) 01/03/25 04:12 Absolute Nucleated RBC 0.1 /100WBC 01/03/25 04:12 Total Counted 100 01/02/25 04:40 Neutrophils % (Manual) 71 % (39-76) 01/02/25 04:40 Band Neutrophils % 6 % (0-10) 01/02/25 04:40 Lymphocytes % (Manual) 13 % (13-43) 01/02/25 04:40 Monocytes % (Manual) 9 % (4-9) 01/02/25 04:40 Eosinophils % (Manual) 1 % (0-6) 01/02/25 04:40 Atypical Lymphocytes Few 12/31/24 11:04 Plt Morphology Comment Normal (NORMAL) 01/02/25 04:40 RBC Morphology Normal (NORMAL) 01/02/25 04:40 Sodium 131 mmol/L (136-145) L 01/03/25 04:12 Corrected Sodium 134 mmol/L (136-145) L 01/03/25 04:12 Potassium 4.0 mmol/L (3.5-5.1) 01/03/25 04:12 Chloride 98 mmol/L (98-107) 01/03/25 04:12 Carbon Dioxide 28.6 mmol/L (21-32) 01/03/25 04:12 BUN 6 mg/dL (7-18) L 01/03/25 04:12 Creatinine 0.89 mg/dL (0.70-1.30) 01/03/25 04:12 Est GFR (MDRD) Af Amer > 60 (>60) 01/03/25 04:12 Est GFR (MDRD) Non-Af > 60 (>60) 01/03/25 04:12 Glucose 222 mg/dL (65-99) H 01/03/25 04:12 POC Glucose (mg/dL) 232 mg/dL (65-99) H 01/03/25 20:01 Hemoglobin A1c 12.0 % 12/31/24 19:06 Lactic Acid 1.9 mmol/L (0.4-2.0) 12/31/24 23:21 Calcium 7.8 mg/dL (8.5-10.1) L 01/03/25 04:12 Corrected Calcium 9.9 mg/dL (8.5-10.1) 01/03/25 04:12 Magnesium 2.0 mg/dL (2.0-2.9) 01/02/25 04:40 Total Bilirubin 0.60 mg/dL (0.2-1.0) 01/03/25 04:12 AST 19 Units/L (15-37) 01/03/25 04:12 ALT 23 Units/L (12-78) 01/03/25 04:12 Alkaline Phosphatase 99 Units/L (46-116) 01/03/25 04:12 B-Natriuretic Peptide 93.5 pg/mL (0-79) H 12/31/24 11:04 Total Protein 7.5 g/dL (6.4-8.2) 01/03/25 04:12 Albumin 1.4 g/dL (3.4-5.0) L 01/03/25 04:12 Globulin 6.1 g/dL (2.5-4.5) H 01/03/25 04:12 Albumin/Globulin Ratio 0.2 Ratio (1.1-2.1) L 01/03/25 04:12 Vancomycin Trough 13.9 ug/mL (15-20) L 01/02/25 09:40 Random Vancomycin 12.7 ug/mL 01/03/25 18:23 Acetone, Semi-Quant Negative (NEGATIVE) 12/31/24 11:04 Assessment and Plan 1: Deep abscesses and cellulitis left arm and forearm with infected skin ulcers. S/p debridement , drainage and packing. may need more surgical debridement . 2: Diabetes mellitus, on insulin coverage. Problem Patient Problems: Patient Problems Left arm cellulitis (Acute) L03.114 Sepsis (Acute) A41.9
[2025-01-03] MEDS: DILAUDID INJ IVP PRN (23:08)
[2025-01-04 05:41] LABS: MEAN PLATELET VOLUME 9.4 fL (7.4-11.0); RED CELL DISTRIBUTION WIDTH 15.4 % (11.6-16.5)
[2025-01-04] MEDS: GLUCOPHAGE ONE ×3 (05:49→17:11)
[2025-01-04] MEDS: ZESTRIL TAB 20 MG ONE ×2 (05:50→09:14)
[2025-01-04 05:55] LABS: COR CA(FOR HYPOALB) 10.1 mg/dL (8.5-10.1); COR NA(FOR HYPERGLY) 135 mmol/L (136-145); CREATININE 0.81 mg/dL (0.70-1.30); eGFR NON BLACK RACES > 60 (>60)
[2025-01-04] MEDS ORDERED: CONSULT PHARMACY - POTASSIUM & MAGNESIUM XX SCH (07:00)
[2025-01-04] MEDS: MAG-OX TAB PO SCH (08:08)
[2025-01-04] MEDS ORDERED: LANTUS SC SCH (09:00)
[2025-01-04] MEDS: NORVASC TAB 5 MG PO SCH (09:42)
[2025-01-04] MEDS: CLEOCIN 600 MG IV PREMIX 600 MG/50 ML BAG IV SCH (11:22)
[2025-01-04] MEDS: NS IV SCH (11:33)
[2025-01-04] MEDS: MAGNESIUM SULFATE IV SCH (11:33)
[2025-01-04] MEDS: KCL IV SCH (11:33)
[2025-01-04] MEDS: MERREM VIAL 1 G in NS 100 ML IV 100 ML IV SCH (11:47)
[2025-01-04 19:42] LABS: CREATININE 0.83 mg/dL (0.70-1.30)
[2025-01-04] MEDS: LANTUS SC SCH (20:11)
[2025-01-05 06:35] LABS: MEAN PLATELET VOLUME 9.5 fL (7.4-11.0); RED CELL DISTRIBUTION WIDTH 15.5 % (11.6-16.5)
[2025-01-05 06:54] LABS: COR CA(FOR HYPOALB) 10.0 mg/dL (8.5-10.1); COR NA(FOR HYPERGLY) 137 mmol/L (136-145); CREATININE 0.78 mg/dL (0.70-1.30); eGFR NON BLACK RACES > 60 (>60)
[2025-01-05] MEDS: MERREM VIAL ONE (07:44)
[2025-01-05] MEDS: ZESTRIL TAB 20 MG ONE ×2 (07:44→09:07)
[2025-01-05] MEDS: SNACK - Diabetic Appropriate PO SCH (07:45)
[2025-01-05] MEDS: GLUCOPHAGE ONE ×2 (07:45→16:57)
[2025-01-05] MEDS ORDERED: CONSULT PHARMACY - POTASSIUM & MAGNESIUM XX SCH (08:00)
[2025-01-05] MEDS: GLUCOTROL XL 24-HR PO SCH (08:29)
[2025-01-05] MEDS: MAG-OX TAB PO SCH (09:11)
--- NOTE | 2025-01-05 09:35 | DR.PROGNOT ---
HOSPITAL PROGRESS NOTE Progress Note for Day of: Progress Note Date: 01/05/25 Chief Complaint Chief Complaint: Left arm pain is the same, Less edema and has full range of motion of the hand and wrist. Moderate drainage through the dressing which was changed and reapplied. Cultures are showing gram-positive cocci and gram-negative bacteria. White count is elevted 12.7, Hgb 9.1 blood sugar 220, BUN/creatinine and liver function tests are normal.. Vanco level 14.8 Patient is afebrile 97.9.., the left arm is still edematous, all distal pulses are positive. Same IV antibiotics ..local care ,arm elevation . . Past Medical Family Social History Allergies: Allergies No Known Allergies Allergy (Verified 12/31/24 13:30) Review Of Systems Changes in ROS: see HPI Vital Signs Vital Signs: Vital Signs Temperature 97.9 F Temperature 97.6 F Pulse Rate [Right Radial] 90 Pulse Rate [Right Radial] 91 Respiratory Rate 21 Respiratory Rate 18 Respiratory Rate 22 Respiratory Rate 18 Respiratory Rate 22 Blood Pressure [Right Calf] 156/72 Blood Pressure [Right Calf] 190/100 Blood Pressure [Right Calf] 188/87 Blood Pressure [Right Arm] 156/72 O2 Sat by Pulse Oximetry 96 O2 Sat by Pulse Oximetry 95 Physical Exam Oriented: Normal Eyes: Normal Ear: Normal Nose: Normal Throat: Normal Respiratory: Normal Cardiovascular: Normal : Normal GI:Auscultation: Normal GI:Palpation: Normal GI: Tenderness: Normal Skin: Red (LUE) and Tender Musculoskeletal: Left, Elbow, Forearm and Tender Psychiatric: Normal Mood Description: Calm and Appropriate Affect: Normal Speech Pattern: Clear, Appropriate and Delayed Laboratory and Diagnostics 01/05/25 05:10 01/05/25 05:10 Labs: 12/31/24 17:18 Arm - Left Wound Gram Stain - Final 12/31/24 17:18 Arm - Left Wound Culture - Preliminary 12/31/24 17:19 Arm - Left Wound Culture - Preliminary 12/31/24 13:24 Arm - Drainage Wound Gram Stain - Final 12/31/24 13:24 Arm - Drainage Wound Culture - Preliminary Staphylococcus Hominis 12/31/24 11:31 Blood Blood Culture - Preliminary 12/31/24 11:04 Blood Blood Culture - Preliminary Laboratory WBC 12.7 X10^3/uL (3.6-10.0) H 01/05/25 05:10 RBC 3.32 X10^6/uL (4.7-6.0) L 01/05/25 05:10 Hgb 9.1 g/dL (13.5-18.0) L 01/05/25 05:10 Hct 26.8 % (42.0-54.0) L 01/05/25 05:10 MCV 80.7 fL (80.0-100.0) 01/05/25 05:10 MCH 27.4 pg (27.0-34.0) 01/05/25 05:10 MCHC 34.0 g/dL (33.0-35.0) 01/05/25 05:10 RDW 15.5 % (11.6-16.5) 01/05/25 05:10 Plt Count 361 X10^3/uL (150.0-450.0) 01/05/25 05:10 Plt Count Comment Adequate (ADEQUATE) 01/02/25 04:40 MPV 9.5 fL (7.4-11.0) 01/05/25 05:10 Neut % (Auto) 74.3 % (42.0-75.0) 01/05/25 05:10 Lymph % (Auto) 12.8 % (21.0-51.0) L 01/05/25 05:10 [place] % (Auto) 11.1 % (0.0-13.0) 01/05/25 05:10 Eos % (Auto) 1.3 % (0.9-2.9) 01/05/25 05:10 Baso % (Auto) 0.5 % (0.2-1.0) 01/05/25 05:10 Neut # (Auto) 9.4 x10^3/uL (2.2-4.8) H 01/05/25 05:10 Lymph # (Auto) 1.6 X10^3/uL (1.3-2.9) 01/05/25 05:10 [place] # (Auto) 1.4 x10^3/uL (0.3-0.8) H 01/05/25 05:10 Eos # (Auto) 0.2 x10^3/uL (0.0-0.2) 01/05/25 05:10 Baso # (Auto) 0.1 X10^3/uL (0.0-0.1) 01/05/25 05:10 Absolute Nucleated RBC 0.1 /100WBC 01/05/25 05:10 Total Counted 100 01/02/25 04:40 Neutrophils % (Manual) 71 % (39-76) 01/02/25 04:40 Band Neutrophils % 6 % (0-10) 01/02/25 04:40 Lymphocytes % (Manual) 13 % (13-43) 01/02/25 04:40 Monocytes % (Manual) 9 % (4-9) 01/02/25 04:40 Eosinophils % (Manual) 1 % (0-6) 01/02/25 04:40 Atypical Lymphocytes Few 12/31/24 11:04 Plt Morphology Comment Normal (NORMAL) 01/02/25 04:40 RBC Morphology Normal (NORMAL) 01/02/25 04:40 Sodium 134 mmol/L (136-145) L 01/05/25 05:10 Corrected Sodium 137 mmol/L (136-145) 01/05/25 05:10 Potassium 4.7 mmol/L (3.5-5.1) 01/05/25 05:10 Chloride 99 mmol/L (98-107) 01/05/25 05:10 Carbon Dioxide 28.5 mmol/L (21-32) 01/05/25 05:10 BUN 5 mg/dL (7-18) L 01/05/25 05:10 Creatinine 0.78 mg/dL (0.70-1.30) 01/05/25 05:10 Est GFR (MDRD) Af Amer > 60 (>60) 01/05/25 05:10 Est GFR (MDRD) Non-Af > 60 (>60) 01/05/25 05:10 Glucose 220 mg/dL (65-99) H 01/05/25 05:10 POC Glucose (mg/dL) 219 mg/dL (65-99) H 01/05/25 05:29 Hemoglobin A1c 12.0 % 12/31/24 19:06 Lactic Acid 1.9 mmol/L (0.4-2.0) 12/31/24 23:21 Calcium 7.8 mg/dL (8.5-10.1) L 01/05/25 05:10 Corrected Calcium 10.0 mg/dL (8.5-10.1) 01/05/25 05:10 Magnesium 1.7 mg/dL (2.0-2.9) L 01/05/25 05:10 Total Bilirubin 0.50 mg/dL (0.2-1.0) 01/05/25 05:10 AST 24 Units/L (15-37) 01/05/25 05:10 ALT 25 Units/L (12-78) 01/05/25 05:10 Alkaline Phosphatase 91 Units/L (46-116) 01/05/25 05:10 B-Natriuretic Peptide 93.5 pg/mL (0-79) H 12/31/24 11:04 Total Protein 7.4 g/dL (6.4-8.2) 01/05/25 05:10 Albumin 1.3 g/dL (3.4-5.0) L 01/05/25 05:10 Globulin 6.1 g/dL (2.5-4.5) H 01/05/25 05:10 Albumin/Globulin Ratio 0.2 Ratio (1.1-2.1) L 01/05/25 05:10 Vancomycin Trough 14.8 ug/mL (15-20) L 01/04/25 19:13 Random Vancomycin 12.7 ug/mL 01/03/25 18:23 Acetone, Semi-Quant Negative (NEGATIVE) 12/31/24 11:04 Tissue Pathology See comment. 12/31/24 17:20 Assessment and Plan 1: Deep abscesses and cellulitis left arm and forearm with infected skin ulcers. S/p debridement , drainage and packing. On IV antibiotics, local care and arm elevation. 2: Diabetes mellitus, on insulin coverage. Problem Patient Problems: Patient Problems Left arm cellulitis (Acute) L03.114 Sepsis (Acute) A41.9
--- NOTE | 2025-01-05 10:03 | PCM.PROG ---
Progress Note Progress Note for Day of Date of Exam: 01/04/25 Subjective Subjective: Patient is in bed this morning. No acute events overnight. General surgery-Dr Romero is following. One of the Wound Cx showing Staph hominis. He remains on IV antibiotics. Labs/imaging reviewed: - WBC 16.9, hemoglobin 9, platelets 382, sodium 135, potassium 4.4, creatinine 0.81, glucose 226. - A1c 12/31/2024 12% - Wound cultures: Gram + cocci pending, Staph Hominis - Blood cultures NGTD Plan: Continue IV antibiotics, follow surgery recommendations. Keep arm elevated and in the sling. Follow-up final cultures. Continue pain control. Replace electrolytes as per protocol. Continue hydration. Continue sliding scale insulin. Will add clonidine and norvasc for blood pressure. Continue metformin 500 mg BID and add glipizide. Increase Lantus to 25 units qHS. Wound care and dressing change as per nursing. Monitor a.m. labs and imaging. Time spent for clinical assessment, reviewing labs and imaging, physical exam, decision making and documentation greater than 45 minutes. Past Medical Family Social History Allergies: Allergies No Known Allergies Allergy (Verified 12/31/24 13:30) Review of Systems ROS changes noted: see HPI Vital Signs and I&O's Vital Signs: Vital Signs Temperature 98.4 F Temperature 98.5 F Pulse Rate [Right Radial] 90 Pulse Rate [Right Radial] 93 Respiratory Rate 18 Respiratory Rate 16 Respiratory Rate 18 Respiratory Rate 18 Respiratory Rate 20 Respiratory Rate 17 Respiratory Rate 20 Blood Pressure [Right Calf] 188/86 Blood Pressure [Right Calf] 157/82 Blood Pressure [Right Calf] 146/68 O2 Sat by Pulse Oximetry 93 O2 Sat by Pulse Oximetry 93 Intake and Output: Intake & Output 01/01/25 01/02/25 01/03/25 01/04/25 23:59 23:59 23:59 23:59 Intake Total 4897 / 4897 2636 / 2636 2268 / 2268 1278 / 1278 Output Total 4030 / 4030 1325 / 1325 1100 / 1100 2024 Balance 867 / 867 1311 / 1311 1168 / 1168 -747 / -747 Physical Exam Oriented: Normal Eyes: Normal Ear: Normal Nose: Normal Throat: Normal Respiratory: Normal Cardiovascular: Normal : Normal Auscultation: Bowel Sounds: Normal Tenderness: Normal Skin: Red (LUE) and Tender Musculoskeletal: Left, Elbow, Forearm and Tender Psychiatric: Normal Mood Description: Calm and Appropriate Affect: Normal Speech Pattern: Clear, Appropriate and Delayed Laboratory and Diagnostics 01/05/25 05:10 01/05/25 05:10 Labs: 12/31/24 17:18 Arm - Left Wound Gram Stain - Final 12/31/24 17:18 Arm - Left Wound Culture - Preliminary 12/31/24 17:19 Arm - Left Wound Culture - Preliminary 12/31/24 13:24 Arm - Drainage Wound Gram Stain - Final 12/31/24 13:24 Arm - Drainage Wound Culture - Preliminary Staphylococcus Hominis 12/31/24 11:31 Blood Blood Culture - Preliminary 12/31/24 11:04 Blood Blood Culture - Preliminary Laboratory WBC 16.9 X10^3/uL (3.6-10.0) H 01/04/25 05:08 RBC 3.22 X10^6/uL (4.7-6.0) L 01/04/25 05:08 Hgb 9.0 g/dL (13.5-18.0) L 01/04/25 05:08 Hct 25.7 % (42.0-54.0) L 01/04/25 05:08 MCV 79.6 fL (80.0-100.0) L 01/04/25 05:08 MCH 28.0 pg (27.0-34.0) 01/04/25 05:08 MCHC 35.1 g/dL (33.0-35.0) H 01/04/25 05:08 RDW 15.4 % (11.6-16.5) 01/04/25 05:08 Plt Count 382 X10^3/uL (150.0-450.0) 01/04/25 05:08 Plt Count Comment Adequate (ADEQUATE) 01/02/25 04:40 MPV 9.4 fL (7.4-11.0) 01/04/25 05:08 Neut % (Auto) 74.3 % (42.0-75.0) 01/04/25 05:08 Lymph % (Auto) 12.8 % (21.0-51.0) L 01/04/25 05:08 [place] % (Auto) 11.5 % (0.0-13.0) 01/04/25 05:08 Eos % (Auto) 1.1 % (0.9-2.9) 01/04/25 05:08 Baso % (Auto) 0.3 % (0.2-1.0) 01/04/25 05:08 Neut # (Auto) 12.5 x10^3/uL (2.2-4.8) H 01/04/25 05:08 Lymph # (Auto) 2.2 X10^3/uL (1.3-2.9) 01/04/25 05:08 [place] # (Auto) 1.9 x10^3/uL (0.3-0.8) H 01/04/25 05:08 Eos # (Auto) 0.2 x10^3/uL (0.0-0.2) 01/04/25 05:08 Baso # (Auto) 0.1 X10^3/uL (0.0-0.1) 01/04/25 05:08 Absolute Nucleated RBC 0.1 /100WBC 01/04/25 05:08 Total Counted 100 01/02/25 04:40 Neutrophils % (Manual) 71 % (39-76) 01/02/25 04:40 Band Neutrophils % 6 % (0-10) 01/02/25 04:40 Lymphocytes % (Manual) 13 % (13-43) 01/02/25 04:40 Monocytes % (Manual) 9 % (4-9) 01/02/25 04:40 Eosinophils % (Manual) 1 % (0-6) 01/02/25 04:40 Atypical Lymphocytes Few 12/31/24 11:04 Plt Morphology Comment Normal (NORMAL) 01/02/25 04:40 RBC Morphology Normal (NORMAL) 01/02/25 04:40 Sodium 132 mmol/L (136-145) L 01/04/25 05:08 Corrected Sodium 135 mmol/L (136-145) L 01/04/25 05:08 Potassium 4.4 mmol/L (3.5-5.1) 01/04/25 05:08 Chloride 100 mmol/L (98-107) 01/04/25 05:08 Carbon Dioxide 30.2 mmol/L (21-32) 01/04/25 05:08 BUN 5 mg/dL (7-18) L 01/04/25 05:08 Creatinine 0.81 mg/dL (0.70-1.30) 01/04/25 05:08 Est GFR (MDRD) Af Amer > 60 (>60) 01/04/25 05:08 Est GFR (MDRD) Non-Af > 60 (>60) 01/04/25 05:08 Glucose 226 mg/dL (65-99) H 01/04/25 05:08 POC Glucose (mg/dL) 208 mg/dL (65-99) H 01/04/25 05:38 Hemoglobin A1c 12.0 % 12/31/24 19:06 Lactic Acid 1.9 mmol/L (0.4-2.0) 12/31/24 23:21 Calcium 7.9 mg/dL (8.5-10.1) L 01/04/25 05:08 Corrected Calcium 10.1 mg/dL (8.5-10.1) 01/04/25 05:08 Magnesium 1.6 mg/dL (2.0-2.9) L 01/04/25 05:08 Total Bilirubin 0.50 mg/dL (0.2-1.0) 01/04/25 05:08 AST 22 Units/L (15-37) 01/04/25 05:08 ALT 24 Units/L (12-78) 01/04/25 05:08 Alkaline Phosphatase 91 Units/L (46-116) 01/04/25 05:08 B-Natriuretic Peptide 93.5 pg/mL (0-79) H 12/31/24 11:04 Total Protein 7.2 g/dL (6.4-8.2) 01/04/25 05:08 Albumin 1.2 g/dL (3.4-5.0) L 01/04/25 05:08 Globulin 6.0 g/dL (2.5-4.5) H 01/04/25 05:08 Albumin/Globulin Ratio 0.2 Ratio (1.1-2.1) L 01/04/25 05:08 Vancomycin Trough 13.9 ug/mL (15-20) L 01/02/25 09:40 Random Vancomycin 12.7 ug/mL 01/03/25 18:23 Acetone, Semi-Quant Negative (NEGATIVE) 12/31/24 11:04 Tissue Pathology See comment. 12/31/24 17:20 Plan (1) Necrotizing soft tissue infection: Status: Acute Plan: General surgery following IV antibiotics. Wound care. IV fluids. Follow-up culture results. (2) Uncontrolled diabetes mellitus: Status: Chronic Qualifiers: Diabetes mellitus type: type 2 Glycemic state: with hyperglycemia Q ualified Code(s): E11.65 - Type 2 diabetes mellitus with hyperglycemia Plan: SSI (3) Hypokalemia: Status: Acute (4) Hypomagnesemia: Status: Acute (5) Sepsis: Status: Acute Qualifiers: Sepsis acute organ dysfunction status: without acute organ dysfunction Sepsis type: sepsis due to unspecified organism Qualified Code(s): A41.9 - Sepsis, unspecified organism (6) Cellulitis: Status: Acute Qualifiers: Laterality: left Site of cellulitis: extremity Site of cellulitis of extremity: upper extremity Qualified Code(s): L03.114 - Cellulitis of left upper limb
--- NOTE | 2025-01-05 10:07 | PCM.PROG ---
Progress Note Progress Note for Day of Date of Exam: 01/05/25 Subjective Subjective: Patient is resting in bed this morning. No acute events overnight. His arm is elevated in a sling. Swelling has reduced. General surgery-Dr Romero is following. Wound dressing changed this morning. He remains on IV antibiotics. He did have repeat CT of arm for monitoring, results pending. Labs/imaging reviewed: - WBC 12.7, hemoglobin 9.1, platelets 361, sodium 134, potassium 4.7, creatinine 0.78, glucose 220. - A1c 12/31/2024 12% - Wound cultures: Gram + cocci pending, Staph Hominis - Blood cultures NGTD Plan: Continue IV antibiotics, follow surgery recommendations. Leukocytosis trending down. Keep arm elevated and in the sling. Follow-up final cultures. Continue pain control. Replace electrolytes as per protocol. Continue hydration. Continue sliding scale insulin. Increase norvasc for blood pressure. Continue metformin 500 mg BID and increase glipizide. Increase Lantus to 30 units qHS. Wound care and dressing change as per nursing. Monitor a.m. labs and imaging. Time spent for clinical assessment, reviewing labs and imaging, physical exam, decision making and documentation greater than 45 minutes. Past Medical Family Social History Allergies: Allergies No Known Allergies Allergy (Verified 12/31/24 13:30) Review of Systems ROS changes noted: see HPI Vital Signs and I&O's Vital Signs: Vital Signs Temperature 97.9 F Temperature 97.6 F Pulse Rate [Right Radial] 90 Pulse Rate [Right Radial] 91 Respiratory Rate 21 Respiratory Rate 18 Respiratory Rate 22 Respiratory Rate 18 Respiratory Rate 22 Blood Pressure [Right Calf] 156/72 Blood Pressure [Right Calf] 190/100 Blood Pressure [Right Calf] 188/87 Blood Pressure [Right Arm] 156/72 O2 Sat by Pulse Oximetry 96 O2 Sat by Pulse Oximetry 95 Intake and Output: Intake & Output 01/02/25 01/03/25 01/04/25 01/05/25 23:59 23:59 23:59 23:59 Intake Total 2636 / 2636 2268 / 2268 3658 / 3658 766 / 766 Output Total 1325 / 1325 1100 / 1100 4225 / 4225 600 / 600 Balance 1311 / 1311 1168 / 1168 -567 / -567 166 / 166 Physical Exam Oriented: Normal Eyes: Normal Ear: Normal Nose: Normal Throat: Normal Respiratory: Normal Cardiovascular: Normal : Normal Auscultation: Bowel Sounds: Normal Tenderness: Normal Skin: Tender Musculoskeletal: Left, Elbow, Forearm and Tender Psychiatric: Normal Mood Description: Calm and Appropriate Affect: Normal Speech Pattern: Clear, Appropriate and Delayed Laboratory and Diagnostics 01/05/25 05:10 01/05/25 05:10 Labs: 12/31/24 17:18 Arm - Left Wound Gram Stain - Final 12/31/24 17:18 Arm - Left Wound Culture - Preliminary 12/31/24 17:19 Arm - Left Wound Culture - Preliminary 12/31/24 13:24 Arm - Drainage Wound Gram Stain - Final 12/31/24 13:24 Arm - Drainage Wound Culture - Preliminary Staphylococcus Hominis 12/31/24 11:31 Blood Blood Culture - Preliminary 12/31/24 11:04 Blood Blood Culture - Preliminary Laboratory WBC 12.7 X10^3/uL (3.6-10.0) H 01/05/25 05:10 RBC 3.32 X10^6/uL (4.7-6.0) L 01/05/25 05:10 Hgb 9.1 g/dL (13.5-18.0) L 01/05/25 05:10 Hct 26.8 % (42.0-54.0) L 01/05/25 05:10 MCV 80.7 fL (80.0-100.0) 01/05/25 05:10 MCH 27.4 pg (27.0-34.0) 01/05/25 05:10 MCHC 34.0 g/dL (33.0-35.0) 01/05/25 05:10 RDW 15.5 % (11.6-16.5) 01/05/25 05:10 Plt Count 361 X10^3/uL (150.0-450.0) 01/05/25 05:10 Plt Count Comment Adequate (ADEQUATE) 01/02/25 04:40 MPV 9.5 fL (7.4-11.0) 01/05/25 05:10 Neut % (Auto) 74.3 % (42.0-75.0) 01/05/25 05:10 Lymph % (Auto) 12.8 % (21.0-51.0) L 01/05/25 05:10 [place] % (Auto) 11.1 % (0.0-13.0) 01/05/25 05:10 Eos % (Auto) 1.3 % (0.9-2.9) 01/05/25 05:10 Baso % (Auto) 0.5 % (0.2-1.0) 01/05/25 05:10 Neut # (Auto) 9.4 x10^3/uL (2.2-4.8) H 01/05/25 05:10 Lymph # (Auto) 1.6 X10^3/uL (1.3-2.9) 01/05/25 05:10 [place] # (Auto) 1.4 x10^3/uL (0.3-0.8) H 01/05/25 05:10 Eos # (Auto) 0.2 x10^3/uL (0.0-0.2) 01/05/25 05:10 Baso # (Auto) 0.1 X10^3/uL (0.0-0.1) 01/05/25 05:10 Absolute Nucleated RBC 0.1 /100WBC 01/05/25 05:10 Total Counted 100 01/02/25 04:40 Neutrophils % (Manual) 71 % (39-76) 01/02/25 04:40 Band Neutrophils % 6 % (0-10) 01/02/25 04:40 Lymphocytes % (Manual) 13 % (13-43) 01/02/25 04:40 Monocytes % (Manual) 9 % (4-9) 01/02/25 04:40 Eosinophils % (Manual) 1 % (0-6) 01/02/25 04:40 Atypical Lymphocytes Few 12/31/24 11:04 Plt Morphology Comment Normal (NORMAL) 01/02/25 04:40 RBC Morphology Normal (NORMAL) 01/02/25 04:40 Sodium 134 mmol/L (136-145) L 01/05/25 05:10 Corrected Sodium 137 mmol/L (136-145) 01/05/25 05:10 Potassium 4.7 mmol/L (3.5-5.1) 01/05/25 05:10 Chloride 99 mmol/L (98-107) 01/05/25 05:10 Carbon Dioxide 28.5 mmol/L (21-32) 01/05/25 05:10 BUN 5 mg/dL (7-18) L 01/05/25 05:10 Creatinine 0.78 mg/dL (0.70-1.30) 01/05/25 05:10 Est GFR (MDRD) Af Amer > 60 (>60) 01/05/25 05:10 Est GFR (MDRD) Non-Af > 60 (>60) 01/05/25 05:10 Glucose 220 mg/dL (65-99) H 01/05/25 05:10 POC Glucose (mg/dL) 219 mg/dL (65-99) H 01/05/25 05:29 Hemoglobin A1c 12.0 % 12/31/24 19:06 Lactic Acid 1.9 mmol/L (0.4-2.0) 12/31/24 23:21 Calcium 7.8 mg/dL (8.5-10.1) L 01/05/25 05:10 Corrected Calcium 10.0 mg/dL (8.5-10.1) 01/05/25 05:10 Magnesium 1.7 mg/dL (2.0-2.9) L 01/05/25 05:10 Total Bilirubin 0.50 mg/dL (0.2-1.0) 01/05/25 05:10 AST 24 Units/L (15-37) 01/05/25 05:10 ALT 25 Units/L (12-78) 01/05/25 05:10 Alkaline Phosphatase 91 Units/L (46-116) 01/05/25 05:10 B-Natriuretic Peptide 93.5 pg/mL (0-79) H 12/31/24 11:04 Total Protein 7.4 g/dL (6.4-8.2) 01/05/25 05:10 Albumin 1.3 g/dL (3.4-5.0) L 01/05/25 05:10 Globulin 6.1 g/dL (2.5-4.5) H 01/05/25 05:10 Albumin/Globulin Ratio 0.2 Ratio (1.1-2.1) L 01/05/25 05:10 Vancomycin Trough 14.8 ug/mL (15-20) L 01/04/25 19:13 Random Vancomycin 12.7 ug/mL 01/03/25 18:23 Acetone, Semi-Quant Negative (NEGATIVE) 12/31/24 11:04 Tissue Pathology See comment. 12/31/24 17:20 Plan (1) Necrotizing soft tissue infection: Status: Acute Plan: General surgery following IV antibiotics. Wound care. IV fluids. Follow-up culture results. (2) Uncontrolled diabetes mellitus: Status: Chronic Qualifiers: Diabetes mellitus type: type 2 Glycemic state: with hyperglycemia Q ualified Code(s): E11.65 - Type 2 diabetes mellitus with hyperglycemia Plan: SSI (3) Hypokalemia: Status: Acute (4) Hypomagnesemia: Status: Acute (5) Sepsis: Status: Acute Qualifiers: Sepsis acute organ dysfunction status: without acute organ dysfunction Sepsis type: sepsis due to unspecified organism Qualified Code(s): A41.9 - Sepsis, unspecified organism (6) Cellulitis: Status: Acute Qualifiers: Site of cellulitis: extremity Site of cellulitis of extremity: upper extremity Laterality: left Qualified Code(s): L03.114 - Cellulitis of left upper limb
[2025-01-05] MEDS ORDERED: CATAPRES TAB 0.1 MG PO ONE (11:46)
[2025-01-05] MEDS: NORVASC TAB 5 MG PO SCH (11:59)
[2025-01-05] MEDS: NORVASC TAB 5 MG ONE (12:01)
[2025-01-05] MEDS: LANTUS SC SCH (20:19)
[2025-01-06 02:46] LABS: MEAN PLATELET VOLUME 8.3 fL (7.4-11.0); RED CELL DISTRIBUTION WIDTH 15.5 % (11.6-16.5)
[2025-01-06 02:59] LABS: COR CA(FOR HYPOALB) 10.2 mg/dL (8.5-10.1); COR NA(FOR HYPERGLY) 136 mmol/L (136-145); CREATININE 0.84 mg/dL (0.70-1.30); eGFR NON BLACK RACES > 60 (>60)
[2025-01-06 03:03] LABS: CREATININE 0.87 mg/dL (0.70-1.30)
[2025-01-06] MEDS: GLUCOTROL XL 24-HR PO SCH (06:06)
[2025-01-06] MEDS: ZESTRIL TAB 20 MG ONE ×2 (07:18→08:51)
[2025-01-06] MEDS: GLUCOPHAGE ONE ×2 (07:19→17:04)
[2025-01-06] MEDS ORDERED: CONSULT PHARMACY - POTASSIUM & MAGNESIUM XX SCH (08:00)
[2025-01-06] MEDS: MAG-OX TAB PO SCH (08:44)
--- NOTE | 2025-01-06 10:36 | PCM.PROG ---
Progress Note Progress Note for Day of Date of Exam: 01/06/25 Subjective Subjective: Patient is sitting up in bed this morning. His arm is elevated in a sling. No concerns overnight. General surgery-Dr Romero is following. He remains on IV antibiotics. He did have repeat CT of arm for monitoring, results pending. Labs/imaging reviewed: - WBC 10, hemoglobin 9.3, platelets 438, sodium 135, potassium 4.5, creatinine 0.87, glucose 133. - A1c 12/31/2024 12% - Wound cultures: Strep dysgalactiae, Staph Hominis - Blood cultures NGTD Plan: Continue IV antibiotics, follow surgery recommendations. Leukocytosis trending down. Keep arm elevated and in the sling. Follow-up final cultures. Continue pain control. Replace electrolytes as per protocol. Continue hydration. Continue sliding scale insulin. Continue medications for hypertension and diabetes. Wound care and dressing change as per nursing. Monitor a.m. labs and imaging. Time spent for clinical assessment, reviewing labs and imaging, physical exam, decision making and documentation greater than 45 minutes. Past Medical Family Social History Allergies: Allergies No Known Allergies Allergy (Verified 12/31/24 13:30) Review of Systems ROS changes noted: see HPI Vital Signs and I&O's Vital Signs: Vital Signs Temperature 97.8 F Temperature 97.7 F Pulse Rate [Right Radial] 91 Pulse Rate [Right Radial] 80 Respiratory Rate 20 Respiratory Rate 20 Respiratory Rate 21 Respiratory Rate 18 Respiratory Rate 20 Blood Pressure [Right Arm] 152/77 Blood Pressure [Right Arm] 181/86 Blood Pressure [Right Arm] 155/71 O2 Sat by Pulse Oximetry 93 O2 Sat by Pulse Oximetry 99 O2 Sat by Pulse Oximetry 97 Intake and Output: Intake & Output 01/03/25 01/04/25 01/05/25 01/06/25 23:59 23:59 23:59 23:59 Intake Total 2268 / 2268 3658 / 3658 4081 / 4081 813 / 813 Output Total 1100 / 1100 4225 / 4225 3025 / 3025 1999 / 1999 Balance 1168 / 1168 -567 / -567 1056 / 1056 -1187 / -1187 Physical Exam Oriented: Normal Eyes: Normal Ear: Normal Nose: Normal Throat: Normal Respiratory: Normal Cardiovascular: Normal : Normal Auscultation: Bowel Sounds: Normal Tenderness: Normal Skin: Tender Musculoskeletal: Left, Elbow, Forearm and Tender Psychiatric: Normal Mood Description: Calm and Appropriate Affect: Normal Speech Pattern: Clear and Appropriate Laboratory and Diagnostics 01/06/25 02:28 01/06/25 02:28 Labs: 12/31/24 11:31 Blood Blood Culture - Final 12/31/24 11:04 Blood Blood Culture - Final 12/31/24 17:18 Arm - Left Wound Gram Stain - Final 12/31/24 17:18 Arm - Left Wound Culture - Final Streptococcus Dysgalactiae 12/31/24 17:19 Arm - Left Wound Culture - Final Streptococcus Dysgalactiae 12/31/24 13:24 Arm - Drainage Wound Gram Stain - Final 12/31/24 13:24 Arm - Drainage Wound Culture - Final Streptococcus Dysgalactiae#2 Staphylococcus Hominis Laboratory WBC 10.0 X10^3/uL (3.6-10.0) 01/06/25 02:28 RBC 3.29 X10^6/uL (4.7-6.0) L 01/06/25 02:28 Hgb 9.3 g/dL (13.5-18.0) L 01/06/25 02:28 Hct 26.3 % (42.0-54.0) L 01/06/25 02:28 MCV 79.9 fL (80.0-100.0) L 01/06/25 02:28 MCH 28.3 pg (27.0-34.0) 01/06/25 02:28 MCHC 35.4 g/dL (33.0-35.0) H 01/06/25 02:28 RDW 15.5 % (11.6-16.5) 01/06/25 02:28 Plt Count 438 X10^3/uL (150.0-450.0) 01/06/25 02:28 Plt Count Comment Adequate (ADEQUATE) 01/02/25 04:40 MPV 8.3 fL (7.4-11.0) 01/06/25 02:28 Neut % (Auto) 66.7 % (42.0-75.0) 01/06/25 02:28 Lymph % (Auto) 20.1 % (21.0-51.0) L 01/06/25 02:28 [place] % (Auto) 11.2 % (0.0-13.0) 01/06/25 02:28 Eos % (Auto) 1.7 % (0.9-2.9) 01/06/25 02:28 Baso % (Auto) 0.3 % (0.2-1.0) 01/06/25 02:28 Neut # (Auto) 6.7 x10^3/uL (2.2-4.8) H 01/06/25 02:28 Lymph # (Auto) 2.0 X10^3/uL (1.3-2.9) 01/06/25 02:28 [place] # (Auto) 1.1 x10^3/uL (0.3-0.8) H 01/06/25 02:28 Eos # (Auto) 0.2 x10^3/uL (0.0-0.2) 01/06/25 02:28 Baso # (Auto) 0.0 X10^3/uL (0.0-0.1) 01/06/25 02:28 Absolute Nucleated RBC 0.1 /100WBC 01/06/25 02:28 Total Counted 100 01/02/25 04:40 Neutrophils % (Manual) 71 % (39-76) 01/02/25 04:40 Band Neutrophils % 6 % (0-10) 01/02/25 04:40 Lymphocytes % (Manual) 13 % (13-43) 01/02/25 04:40 Monocytes % (Manual) 9 % (4-9) 01/02/25 04:40 Eosinophils % (Manual) 1 % (0-6) 01/02/25 04:40 Atypical Lymphocytes Few 12/31/24 11:04 Plt Morphology Comment Normal (NORMAL) 01/02/25 04:40 RBC Morphology Normal (NORMAL) 01/02/25 04:40 Sodium 135 mmol/L (136-145) L 01/06/25 02:28 Corrected Sodium 136 mmol/L (136-145) 01/06/25 02:28 Potassium 4.5 mmol/L (3.5-5.1) 01/06/25 02:28 Chloride 100 mmol/L (98-107) 01/06/25 02:28 Carbon Dioxide 32.2 mmol/L (21-32) H 01/06/25 02:28 BUN 6 mg/dL (7-18) L 01/06/25 02:28 Creatinine 0.84 mg/dL (0.70-1.30) 01/06/25 02:28 Creatinine 0.87 mg/dL (0.70-1.30) 01/06/25 02:28 Est GFR (MDRD) Af Amer > 60 (>60) 01/06/25 02:28 Est GFR (MDRD) Non-Af > 60 (>60) 01/06/25 02:28 Glucose 133 mg/dL (65-99) H 01/06/25 02:28 POC Glucose (mg/dL) 145 mg/dL (65-99) H 01/06/25 05:28 Hemoglobin A1c 12.0 % 12/31/24 19:06 Lactic Acid 1.9 mmol/L (0.4-2.0) 12/31/24 23:21 Calcium 8.0 mg/dL (8.5-10.1) L 01/06/25 02:28 Corrected Calcium 10.2 mg/dL (8.5-10.1) H 01/06/25 02:28 Magnesium 1.9 mg/dL (2.0-2.9) L 01/06/25 02:28 Total Bilirubin 0.40 mg/dL (0.2-1.0) 01/06/25 02:28 AST 22 Units/L (15-37) 01/06/25 02:28 ALT 27 Units/L (12-78) 01/06/25 02:28 Alkaline Phosphatase 86 Units/L (46-116) 01/06/25 02:28 B-Natriuretic Peptide 93.5 pg/mL (0-79) H 12/31/24 11:04 Total Protein 7.8 g/dL (6.4-8.2) 01/06/25 02:28 Albumin 1.3 g/dL (3.4-5.0) L 01/06/25 02:28 Globulin 6.5 g/dL (2.5-4.5) H 01/06/25 02:28 Albumin/Globulin Ratio 0.2 Ratio (1.1-2.1) L 01/06/25 02:28 Vancomycin Trough 15.4 ug/mL (15-20) 01/06/25 02:28 Random Vancomycin 12.7 ug/mL 01/03/25 18:23 Acetone, Semi-Quant Negative (NEGATIVE) 12/31/24 11:04 Tissue Pathology See comment. 12/31/24 17:20 Plan (1) Necrotizing soft tissue infection: Status: Acute Plan: General surgery following IV antibiotics. Wound care. IV fluids. Follow-up culture results. (2) Uncontrolled diabetes mellitus: Status: Chronic Qualifiers: Diabetes mellitus type: type 2 Glycemic state: with hyperglycemia Q ualified Code(s): E11.65 - Type 2 diabetes mellitus with hyperglycemia Plan: SSI (3) Hypokalemia: Status: Acute (4) Hypomagnesemia: Status: Acute (5) Sepsis: Status: Acute Qualifiers: Sepsis acute organ dysfunction status: without acute organ dysfunction Sepsis type: sepsis due to unspecified organism Qualified Code(s): A41.9 - Sepsis, unspecified organism (6) Cellulitis: Status: Acute Qualifiers: Site of cellulitis: extremity Site of cellulitis of extremity: upper extremity Laterality: left Qualified Code(s): L03.114 - Cellulitis of left upper limb
[2025-01-06] MEDS: NS 250 ML IV 25 ML IV PRN (13:37)
[2025-01-06] MEDS ORDERED: ZESTRIL TAB 20 MG ONE (19:20)
--- NOTE | 2025-01-06 22:20 | DR.PROGNOT ---
HOSPITAL PROGRESS NOTE Progress Note for Day of: Progress Note Date: 01/06/25 Chief Complaint Chief Complaint: Left arm pain is the same, moderate drainage through the dressings . Less edema and has full range of motion of the hand and wrist. Cultures are showing gram-positive cocci and gram-negative bacteria. White count is elevted 10, Hgb 9.3 blood sugar 220, BUN/creatinine and liver function tests are normal.. Vanco level 14.8 Patient is afebrile 97.9.., the left arm is still edematous, all distal pulses are positive. Same IV antibiotics ..local care ,arm elevation .no need for surgery now .. . Past Medical Family Social History Allergies: Allergies No Known Allergies Allergy (Verified 12/31/24 13:30) Review Of Systems Changes in ROS: see HPI Vital Signs Vital Signs: Vital Signs Temperature 98.7 F Temperature 98.5 F Pulse Rate [Right Radial] 82 Pulse Rate [Right Radial] 85 Respiratory Rate 20 Respiratory Rate 20 Respiratory Rate 20 Respiratory Rate 20 Respiratory Rate 20 Respiratory Rate 22 Respiratory Rate 18 Blood Pressure [Right Arm] 159/74 Blood Pressure [Right Arm] 158/74 O2 Sat by Pulse Oximetry 97 O2 Sat by Pulse Oximetry 99 Physical Exam Oriented: Normal Eyes: Normal Ear: Normal Nose: Normal Throat: Normal Respiratory: Normal Cardiovascular: Normal : Normal GI:Auscultation: Normal GI:Palpation: Normal GI: Tenderness: Normal Skin: Tender Musculoskeletal: Left, Elbow, Forearm and Tender Psychiatric: Normal Mood Description: Calm and Appropriate Affect: Normal Speech Pattern: Clear and Appropriate Laboratory and Diagnostics 01/06/25 02:28 01/06/25 02:28 Labs: 12/31/24 11:31 Blood Blood Culture - Final 12/31/24 11:04 Blood Blood Culture - Final 12/31/24 17:18 Arm - Left Wound Gram Stain - Final 12/31/24 17:18 Arm - Left Wound Culture - Final Streptococcus Dysgalactiae 12/31/24 17:19 Arm - Left Wound Culture - Final Streptococcus Dysgalactiae 12/31/24 13:24 Arm - Drainage Wound Gram Stain - Final 12/31/24 13:24 Arm - Drainage Wound Culture - Final Streptococcus Dysgalactiae#2 Staphylococcus Hominis Laboratory WBC 10.0 X10^3/uL (3.6-10.0) 01/06/25 02:28 RBC 3.29 X10^6/uL (4.7-6.0) L 01/06/25 02:28 Hgb 9.3 g/dL (13.5-18.0) L 01/06/25 02:28 Hct 26.3 % (42.0-54.0) L 01/06/25 02:28 MCV 79.9 fL (80.0-100.0) L 01/06/25 02:28 MCH 28.3 pg (27.0-34.0) 01/06/25 02: MCHC 35.4 g/dL (33.0-35.0) H 01/06/25 02:28 RDW 15.5 % (11.6-16.5) 01/06/25 02:28 Plt Count 438 X10^3/uL (150.0-450.0) 01/06/25 02:28 Plt Count Comment Adequate (ADEQUATE) 01/02/25 04:40 MPV 8.3 fL (7.4-11.0) 01/06/25 02:28 Neut % (Auto) 66.7 % (42.0-75.0) 01/06/25 02:28 Lymph % (Auto) 20.1 % (21.0-51.0) L 01/06/25 02:28 [place] % (Auto) 11.2 % (0.0-13.0) 01/06/25 02:28 Eos % (Auto) 1.7 % (0.9-2.9) 01/06/25 02: Baso % (Auto) 0.3 % (0.2-1.0) 01/06/25 02:28 Neut # (Auto) 6.7 x10^3/uL (2.2-4.8) H 01/06/25 02:28 Lymph # (Auto) 2.0 X10^3/uL (1.3-2.9) 01/06/25 02:28 [place] # (Auto) 1.1 x10^3/uL (0.3-0.8) H 01/06/25 02:28 Eos # (Auto) 0.2 x10^3/uL (0.0-0.2) 01/06/25 02:28 Baso # (Auto) 0.0 X10^3/uL (0.0-0.1) 01/06/25 02:28 Absolute Nucleated RBC 0.1 /100WBC 01/06/25 02:28 Total Counted 100 01/02/25 04:40 Neutrophils % (Manual) 71 % (39-76) 01/02/25 04:40 Band Neutrophils % 6 % (0-10) 01/02/25 04:40 Lymphocytes % (Manual) 13 % (13-43) 01/02/25 04:40 Monocytes % (Manual) 9 % (4-9) 01/02/25 04:40 Eosinophils % (Manual) 1 % (0-6) 01/02/25 04:40 Atypical Lymphocytes Few 12/31/24 11:04 Plt Morphology Comment Normal (NORMAL) 01/02/25 04:40 RBC Morphology Normal (NORMAL) 01/02/25 04:40 Sodium 135 mmol/L (136-145) L 01/06/25 02:28 Corrected Sodium 136 mmol/L (136-145) 01/06/25 02:28 Potassium 4.5 mmol/L (3.5-5.1) 01/06/25 02:28 Chloride 100 mmol/L (98-107) 01/06/25 02:28 Carbon Dioxide 32.2 mmol/L (21-32) H 01/06/25 02:28 BUN 6 mg/dL (7-18) L 01/06/25 02:28 Creatinine 0.84 mg/dL (0.70-1.30) 01/06/25 02:28 Creatinine 0.87 mg/dL (0.70-1.30) 01/06/25 02:28 Est GFR (MDRD) Af Amer > 60 (>60) 01/06/25 02:28 Est GFR (MDRD) Non-Af > 60 (>60) 01/06/25 02:28 Glucose 133 mg/dL (65-99) H 01/06/25 02:28 POC Glucose (mg/dL) 197 mg/dL (65-99) H 01/06/25 20:03 Hemoglobin A1c 12.0 % 12/31/24 19:06 Lactic Acid 1.9 mmol/L (0.4-2.0) 12/31/24 23:21 Calcium 8.0 mg/dL (8.5-10.1) L 01/06/25 02:28 Corrected Calcium 10.2 mg/dL (8.5-10.1) H 01/06/25 02:28 Magnesium 1.9 mg/dL (2.0-2.9) L 01/06/25 02:28 Total Bilirubin 0.40 mg/dL (0.2-1.0) 01/06/25 02:28 AST 22 Units/L (15-37) 01/06/25 02:28 ALT 27 Units/L (12-78) 01/06/25 02:28 Alkaline Phosphatase 86 Units/L (46-116) 01/06/25 02:28 B-Natriuretic Peptide 93.5 pg/mL (0-79) H 12/31/24 11:04 Total Protein 7.8 g/dL (6.4-8.2) 01/06/25 02:28 Albumin 1.3 g/dL (3.4-5.0) L 01/06/25 02:28 Globulin 6.5 g/dL (2.5-4.5) H 01/06/25 02:28 Albumin/Globulin Ratio 0.2 Ratio (1.1-2.1) L 01/06/25 02:28 Vancomycin Trough 15.4 ug/mL (15-20) 01/06/25 02:28 Random Vancomycin 12.7 ug/mL 01/03/25 18:23 Acetone, Semi-Quant Negative (NEGATIVE) 12/31/24 11:04 Tissue Pathology See comment. 12/31/24 17:20 Assessment and Plan 1: Deep abscesses and cellulitis left arm and forearm with infected skin ulcers. S/p debridement , drainage and packing. On IV antibiotics, local care and arm elevation. 2: Diabetes mellitus, on insulin coverage. Problem Patient Problems: Patient Problems Left arm cellulitis (Acute) L03.114 Sepsis (Acute) A41.9
[2025-01-07 01:54] LABS: MEAN PLATELET VOLUME 7.8 fL (7.4-11.0); RED CELL DISTRIBUTION WIDTH 15.9 % (11.6-16.5)
[2025-01-07 02:06] LABS: COR CA(FOR HYPOALB) 10.0 mg/dL (8.5-10.1); COR NA(FOR HYPERGLY) 137 mmol/L (136-145); CREATININE 0.83 mg/dL (0.70-1.30); eGFR NON BLACK RACES > 60 (>60)
[2025-01-07 02:16] LABS: CREATININE 0.87 mg/dL (0.70-1.30)
[2025-01-07] MEDS: GLUCOPHAGE ONE ×2 (06:58→18:10)
[2025-01-07] MEDS ORDERED: ZESTRIL TAB 20 MG ONE ×2 (08:07→19:11)
--- NOTE | 2025-01-07 08:19 | CT ---
EXAM: UPPER EXT W/O CON HISTORY: left elbow infection; COMPARISON: CT left forearm 12/31/2024 TECHNIQUE: Multiple axial images of the left elbow were obtained without IV contrast. Coronal and sagittal reformats were made and reviewed. Dose reduction techniques included Automated Exposure Control (AEC) and adjustment of mA and kV. FINDINGS: Images were obtained from the mid humerus to the mid forearm. Mineralization is normal. No fracture or dislocation. There are degenerative changes in the elbow consisting of a large traction osteophyte on the olecranon process at the triceps tendon insertion. No focal lytic change to suggest osteomyelitis. Increased density is seen in the subcutaneous tissue mostly posteriorly and laterally. There is no obvious focal fluid collection to suggest an abscess. But there is emphysema in the subcutaneous tissue. This is located around the elbow and in the proximal forearm. It does not extend into the mid arm. Mostly located in the subcutaneous tissue. I do not see any involvement of the deep structures or muscular compartments. The amount of emphysema is not changed from 12/31/2024. IMPRESSION: 1. Emphysematous cellulitis 2. No evidence for abscess THIS IS AN ELECTRONICALLY VERIFIED FINAL REPORT 01/07/2025 8:16 AM - Electronically signed by Rajeev Powers MD
--- NOTE | 2025-01-07 09:30 | PCM.PROG ---
Progress Note Progress Note for Day of Date of Exam: 01/07/25 Subjective Subjective: Patient seen at bedside, no acute events overnight. He is doing better. He states arm pain is better. He did have dressing changed today with Dr Patrick, slight drainage. Repeat CT LUE showed similar findings, no fluid collection or abscess. He remains on IV antibiotics. Labs/imaging reviewed: - WBC 8.2, hemoglobin 9.1, platelets 468, sodium 137, potassium 4.6, creatinine 0.87, glucose 113. - A1c 12/31/2024 12% - Wound cultures: Strep dysgalactiae, Staph Hominis - Blood cultures NGTD Plan: Continue IV antibiotics, DC Clindamycin and Merrem. Continue IV Vancomycin. Follow surgery recommendations. Keep arm elevated and in the sling. Continue pain control. Replace electrolytes as per protocol. Continue hydration. Continue Lantus and sliding scale insulin. Continue medications for hypertension and diabetes. Wound care and dressing change as per nursing. Monitor a.m. labs and imaging. Past Medical Family Social History Allergies: Allergies No Known Allergies Allergy (Verified 12/31/24 13:30) Vital Signs and I&O's Vital Signs: Vital Signs Temperature 98.1 F Temperature 98.6 F Pulse Rate [Right Radial] 90 Pulse Rate [Right Radial] 76 Respiratory Rate 19 Respiratory Rate 21 Respiratory Rate 20 Respiratory Rate 20 Respiratory Rate 22 Blood Pressure [Right Arm] 158/74 Blood Pressure [Right Arm] 158/74 Blood Pressure [Right Arm] 162/75 Blood Pressure [Right Arm] 172/80 O2 Sat by Pulse Oximetry 95 O2 Sat by Pulse Oximetry 98 Intake and Output: Intake & Output 01/04/25 01/05/25 01/06/25 01/07/25 23:59 23:59 23:59 23:59 Intake Total 3658 / 3658 4081 / 4081 5204 / 5204 1188 / 1188 Output Total 4225 / 4225 3025 / 3025 5650 / 5650 1550 / 1550 Balance -567 / -567 1056 / 1056 -446 / -446 -362 / -362 Physical Exam Oriented: Normal Eyes: Normal Ear: Normal Nose: Normal Throat: Normal Respiratory: Normal Cardiovascular: Normal Auscultation: Bowel Sounds: Normal Palpation: Normal Tenderness: Normal Skin: Tender Musculoskeletal: Left, Elbow, Forearm and Tender Psychiatric: Normal Mood Description: Calm and Appropriate Affect: Normal Speech Pattern: Clear and Appropriate Laboratory and Diagnostics 01/07/25 01:44 01/07/25 01:44 Labs: 12/31/24 11:31 Blood Blood Culture - Final 12/31/24 11:04 Blood Blood Culture - Final 12/31/24 17:18 Arm - Left Wound Gram Stain - Final 12/31/24 17:18 Arm - Left Wound Culture - Final Streptococcus Dysgalactiae 12/31/24 17:19 Arm - Left Wound Culture - Final Streptococcus Dysgalactiae 12/31/24 13:24 Arm - Drainage Wound Gram Stain - Final 12/31/24 13:24 Arm - Drainage Wound Culture - Final Streptococcus Dysgalactiae#2 Staphylococcus Hominis Laboratory WBC 8.2 X10^3/uL (3.6-10.0) 01/07/25 01:44 RBC 3.29 X10^6/uL (4.7-6.0) L 01/07/25 01:44 Hgb 9.1 g/dL (13.5-18.0) L 01/07/25 01:44 Hct 26.5 % (42.0-54.0) L 01/07/25 01:44 MCV 80.6 fL (80.0-100.0) 01/07/25 01:44 MCH 27.6 pg (27.0-34.0) 01/07/25 01:44 MCHC 34.3 g/dL (33.0-35.0) 01/07/25 01:44 RDW 15.9 % (11.6-16.5) 01/07/25 01:44 Plt Count 468 X10^3/uL (150.0-450.0) H 01/07/25 01:44 Plt Count Comment Adequate (ADEQUATE) 01/02/25 04:40 MPV 7.8 fL (7.4-11.0) 01/07/25 01:44 Neut % (Auto) 64.0 % (42.0-75.0) 01/07/25 01:44 Lymph % (Auto) 23.4 % (21.0-51.0) 01/07/25 01:44 [place] % (Auto) 10.6 % (0.0-13.0) 01/07/25 01:44 Eos % (Auto) 1.6 % (0.9-2.9) 01/07/25 01:44 Baso % (Auto) 0.4 % (0.2-1.0) 01/07/25 01:44 Neut # (Auto) 5.2 x10^3/uL (2.2-4.8) H 01/07/25 01:44 Lymph # (Auto) 1.9 X10^3/uL (1.3-2.9) 01/07/25 01:44 [place] # (Auto) 0.9 x10^3/uL (0.3-0.8) H 01/07/25 01:44 Eos # (Auto) 0.1 x10^3/uL (0.0-0.2) 01/07/25 01:44 Baso # (Auto) 0.0 X10^3/uL (0.0-0.1) 01/07/25 01:44 Absolute Nucleated RBC 0.0 /100WBC 01/07/25 01:44 Total Counted 100 01/02/25 04:40 Neutrophils % (Manual) 71 % (39-76) 01/02/25 04:40 Band Neutrophils % 6 % (0-10) 01/02/25 04:40 Lymphocytes % (Manual) 13 % (13-43) 01/02/25 04:40 Monocytes % (Manual) 9 % (4-9) 01/02/25 04:40 Eosinophils % (Manual) 1 % (0-6) 01/02/25 04:40 Atypical Lymphocytes Few 12/31/24 11:04 Plt Morphology Comment Normal (NORMAL) 01/02/25 04:40 RBC Morphology Normal (NORMAL) 01/02/25 04:40 Sodium 137 mmol/L (136-145) 01/07/25 01:44 Corrected Sodium 137 mmol/L (136-145) 01/07/25 01:44 Potassium 4.6 mmol/L (3.5-5.1) 01/07/25 01:44 Chloride 102 mmol/L (98-107) 01/07/25 01:44 Carbon Dioxide 32.8 mmol/L (21-32) H 01/07/25 01:44 BUN 6 mg/dL (7-18) L 01/07/25 01:44 Creatinine 0.83 mg/dL (0.70-1.30) 01/07/25 01:44 Creatinine 0.87 mg/dL (0.70-1.30) 01/07/25 01:44 Est GFR (MDRD) Af Amer > 60 (>60) 01/07/25 01:44 Est GFR (MDRD) Non-Af > 60 (>60) 01/07/25 01:44 Glucose 111 mg/dL (65-99) H 01/07/25 01:44 POC Glucose (mg/dL) 113 mg/dL (65-99) H 01/07/25 05:39 Hemoglobin A1c 12.0 % 12/31/24 19:06 Lactic Acid 1.9 mmol/L (0.4-2.0) 12/31/24 23:21 Calcium 7.9 mg/dL (8.5-10.1) L 01/07/25 01:44 Corrected Calcium 10.0 mg/dL (8.5-10.1) 01/07/25 01:44 Magnesium 1.9 mg/dL (2.0-2.9) L 01/07/25 01:44 Total Bilirubin 0.30 mg/dL (0.2-1.0) 01/07/25 01:44 AST 24 Units/L (15-37) 01/07/25 01:44 ALT 29 Units/L (12-78) 01/07/25 01:44 Alkaline Phosphatase 84 Units/L (46-116) 01/07/25 01:44 B-Natriuretic Peptide 93.5 pg/mL (0-79) H 12/31/24 11:04 Total Protein 7.6 g/dL (6.4-8.2) 01/07/25 01:44 Albumin 1.4 g/dL (3.4-5.0) L 01/07/25 01:44 Globulin 6.2 g/dL (2.5-4.5) H 01/07/25 01:44 Albumin/Globulin Ratio 0.2 Ratio (1.1-2.1) L 01/07/25 01:44 Vancomycin Trough 16.2 ug/mL (15-20) 01/07/25 01:44 Random Vancomycin 12.7 ug/mL 01/03/25 18:23 Acetone, Semi-Quant Negative (NEGATIVE) 12/31/24 11:04 Tissue Pathology See comment. 12/31/24 17:20 Plan (1) Necrotizing soft tissue infection: Status: Acute (2) Uncontrolled diabetes mellitus: Status: Chronic Qualifiers: Diabetes mellitus type: type 2 Glycemic state: with hyperglycemia Q ualified Code(s): E11.65 - Type 2 diabetes mellitus with hyperglycemia Plan: SSI (3) Hypokalemia: Status: Acute (4) Hypomagnesemia: Status: Acute (5) Sepsis: Status: Acute Qualifiers: Sepsis acute organ dysfunction status: without acute organ dysfunction Sepsis type: sepsis due to unspecified organism Qualified Code(s): A41.9 - Sepsis, unspecified organism (6) Cellulitis: Status: Acute Qualifiers: Laterality: left Site of cellulitis: extremity Site of cellulitis of extremity: upper extremity Qualified Code(s): L03.114 - Cellulitis of left upper limb
[2025-01-07] MEDS: NS 1,000 ML IV 1,000 ML with MAGNESIUM SULFATE 50% INJ VIAL 2 G IV SCH (10:04)
--- NOTE | 2025-01-07 15:18 | DR.PROGNOT ---
HOSPITAL PROGRESS NOTE Progress Note for Day of: Progress Note Date: 01/07/25 Chief Complaint Chief Complaint: Left arm pain is less. still with moderate drainage through the dressings . last CT showed no deep abscesses. Less edema and has full range of motion of the hand and wrist. Cultures are showing gram-positive cocci and gram-negative bacteria. White count is elevted 10, Hgb 9.3 blood sugar 220, BUN/creatinine and liver function tests are normal.. Vanco level 14.8 Patient is afebrile 97.9.., the left arm is still edematous, all distal pulses are positive. Same IV antibiotics ..local care ,arm elevation . Seems to be improving ,no need for surgery now .. . Past Medical Family Social History Allergies: Allergies No Known Allergies Allergy (Verified 12/31/24 13:30) Review Of Systems Changes in ROS: see HPI Vital Signs Vital Signs: Vital Signs Temperature 98.9 F Temperature 98.9 F Temperature 98.1 F Pulse Rate [Right Radial] 78 Pulse Rate [Right Radial] 78 Pulse Rate [Right Radial] 90 Respiratory Rate 20 Respiratory Rate 19 Respiratory Rate 22 Respiratory Rate 20 Respiratory Rate 20 Respiratory Rate 19 Respiratory Rate 21 Blood Pressure [Right Arm] 174/79 Blood Pressure [Right Arm] 174/79 Blood Pressure [Right Arm] 158/74 O2 Sat by Pulse Oximetry 93 O2 Sat by Pulse Oximetry 99 O2 Sat by Pulse Oximetry 95 Physical Exam Oriented: Normal Eyes: Normal Ear: Normal Nose: Normal Throat: Normal Respiratory: Normal Cardiovascular: Normal : Normal GI:Auscultation: Normal GI:Palpation: Normal GI: Tenderness: Normal Skin: Tender Musculoskeletal: Left, Elbow, Forearm and Tender Psychiatric: Normal Mood Description: Calm and Appropriate Affect: Normal Speech Pattern: Clear and Appropriate Laboratory and Diagnostics 01/07/25 01:44 01/07/25 01:44 Labs: 12/31/24 11:31 Blood Blood Culture - Final 12/31/24 11:04 Blood Blood Culture - Final 12/31/24 17:18 Arm - Left Wound Gram Stain - Final 12/31/24 17:18 Arm - Left Wound Culture - Final Streptococcus Dysgalactiae 12/31/24 17:19 Arm - Left Wound Culture - Final Streptococcus Dysgalactiae 12/31/24 13:24 Arm - Drainage Wound Gram Stain - Final 12/31/24 13:24 Arm - Drainage Wound Culture - Final Streptococcus Dysgalactiae#2 Staphylococcus Hominis Laboratory WBC 8.2 X10^3/uL (3.6-10.0) 01/07/25 01:44 RBC 3.29 X10^6/uL (4.7-6.0) L 01/07/25 01:44 Hgb 9.1 g/dL (13.5-18.0) L 01/07/25 01:44 Hct 26.5 % (42.0-54.0) L 01/07/25 01:44 MCV 80.6 fL (80.0-100.0) 01/07/25 01:44 MCH 27.6 pg (27.0-34.0) 01/07/25 01:44 MCHC 34.3 g/dL (33.0-35.0) 01/07/25 01:44 RDW 15.9 % (11.6-16.5) 01/07/25 01:44 Plt Count 468 X10^3/uL (150.0-450.0) H 01/07/25 01:44 Plt Count Comment Adequate (ADEQUATE) 01/02/25 04:40 MPV 7.8 fL (7.4-11.0) 01/07/25 01:44 Neut % (Auto) 64.0 % (42.0-75.0) 01/07/25 01:44 Lymph % (Auto) 23.4 % (21.0-51.0) 01/07/25 01:44 [place] % (Auto) 10.6 % (0.0-13.0) 01/07/25 01:44 Eos % (Auto) 1.6 % (0.9-2.9) 01/07/25 01:44 Baso % (Auto) 0.4 % (0.2-1.0) 01/07/25 01:44 Neut # (Auto) 5.2 x10^3/uL (2.2-4.8) H 01/07/25 01:44 Lymph # (Auto) 1.9 X10^3/uL (1.3-2.9) 01/07/25 01:44 [place] # (Auto) 0.9 x10^3/uL (0.3-0.8) H 01/07/25 01:44 Eos # (Auto) 0.1 x10^3/uL (0.0-0.2) 01/07/25 01:44 Baso # (Auto) 0.0 X10^3/uL (0.0-0.1) 01/07/25 01:44 Absolute Nucleated RBC 0.0 /100WBC 01/07/25 01:44 Total Counted 100 01/02/25 04:40 Neutrophils % (Manual) 71 % (39-76) 01/02/25 04:40 Band Neutrophils % 6 % (0-10) 01/02/25 04:40 Lymphocytes % (Manual) 13 % (13-43) 01/02/25 04:40 Monocytes % (Manual) 9 % (4-9) 01/02/25 04:40 Eosinophils % (Manual) 1 % (0-6) 01/02/25 04:40 Atypical Lymphocytes Few 12/31/24 11:04 Plt Morphology Comment Normal (NORMAL) 01/02/25 04:40 RBC Morphology Normal (NORMAL) 01/02/25 04:40 Sodium 137 mmol/L (136-145) 01/07/25 01:44 Corrected Sodium 137 mmol/L (136-145) 01/07/25 01:44 Potassium 4.6 mmol/L (3.5-5.1) 01/07/25 01:44 Chloride 102 mmol/L (98-107) 01/07/25 01:44 Carbon Dioxide 32.8 mmol/L (21-32) H 01/07/25 01:44 BUN 6 mg/dL (7-18) L 01/07/25 01:44 Creatinine 0.83 mg/dL (0.70-1.30) 01/07/25 01:44 Creatinine 0.87 mg/dL (0.70-1.30) 01/07/25 01:44 Est GFR (MDRD) Af Amer > 60 (>60) 01/07/25 01:44 Est GFR (MDRD) Non-Af > 60 (>60) 01/07/25 01:44 Glucose 111 mg/dL (65-99) H 01/07/25 01:44 POC Glucose (mg/dL) 174 mg/dL (65-99) H 01/07/25 11:25 Hemoglobin A1c 12.0 % 12/31/24 19:06 Lactic Acid 1.9 mmol/L (0.4-2.0) 12/31/24 23:21 Calcium 7.9 mg/dL (8.5-10.1) L 01/07/25 01:44 Corrected Calcium 10.0 mg/dL (8.5-10.1) 01/07/25 01:44 Magnesium 1.9 mg/dL (2.0-2.9) L 01/07/25 01:44 Total Bilirubin 0.30 mg/dL (0.2-1.0) 01/07/25 01:44 AST 24 Units/L (15-37) 01/07/25 01:44 ALT 29 Units/L (12-78) 01/07/25 01:44 Alkaline Phosphatase 84 Units/L (46-116) 01/07/25 01:44 B-Natriuretic Peptide 93.5 pg/mL (0-79) H 12/31/24 11:04 Total Protein 7.6 g/dL (6.4-8.2) 01/07/25 01:44 Albumin 1.4 g/dL (3.4-5.0) L 01/07/25 01:44 Globulin 6.2 g/dL (2.5-4.5) H 01/07/25 01:44 Albumin/Globulin Ratio 0.2 Ratio (1.1-2.1) L 01/07/25 01:44 Vancomycin Trough 16.2 ug/mL (15-20) 01/07/25 01:44 Random Vancomycin 12.7 ug/mL 01/03/25 18:23 Acetone, Semi-Quant Negative (NEGATIVE) 12/31/24 11:04 Tissue Pathology See comment. 12/31/24 17:20 Assessment and Plan 1: Subsiding deep abscesses and cellulitis left arm and forearm with infected skin ulcers. S/p debridement , drainage and packing. On IV antibiotics, local care and arm elevation. 2: Diabetes mellitus, on insulin coverage. Problem Patient Problems: Patient Problems Left arm cellulitis (Acute) L03.114 Sepsis (Acute) A41.9
[2025-01-08] MEDS ORDERED: GLUCOPHAGE ONE (05:20)
[2025-01-08 06:50] LABS: MEAN PLATELET VOLUME 8.6 fL (7.4-11.0); RED CELL DISTRIBUTION WIDTH 15.7 % (11.6-16.5)
[2025-01-08 06:55] LABS: COR CA(FOR HYPOALB) 10.1 mg/dL (8.5-10.1); COR NA(FOR HYPERGLY) 136 mmol/L (136-145); CREATININE 0.78 mg/dL (0.70-1.30); eGFR NON BLACK RACES > 60 (>60)
[2025-01-08] MEDS ORDERED: ZESTRIL TAB 20 MG ONE ×2 (07:56→19:04)
[2025-01-08] MEDS ORDERED: HYDROGEN PEROXIDE 3% ONE (08:08)
[2025-01-08] MEDS: HYDROGEN PEROXIDE 3% EXT ONE (08:20)
--- NOTE | 2025-01-08 09:56 | PCM.PROG ---
Progress Note Progress Note for Day of Date of Exam: 01/08/25 Subjective Subjective: Patient seen at bedside, no acute events overnight. He is doing better. He states arm pain is better. He did have dressing changed today with Dr Patrick. He remains on IV antibiotics. Labs/imaging reviewed: - WBC 7.4, hemoglobin 9.3, platelets 496, sodium 136, potassium 4.4, creatinine 0.78, glucose 112 - A1c 12/31/2024 12% - Wound cultures: Strep dysgalactiae, Staph Hominis - Blood cultures NGTD Plan: Continue IV Vancomycin. Possible discharge on [place]. Follow surgery recommendations. Keep arm elevated and in the sling. Continue pain control. Replace electrolytes as per protocol. Continue hydration. Continue Lantus and sliding scale insulin. Continue medications for hypertension and diabetes. Wound care and dressing change as per nursing. Monitor a.m. labs and imaging. Past Medical Family Social History Allergies: Allergies No Known Allergies Allergy (Verified 12/31/24 13:30) Vital Signs and I&O's Vital Signs: Vital Signs Temperature 98.2 F Temperature 98.2 F Temperature 98.5 F Pulse Rate [Right Radial] 82 Pulse Rate [Right Radial] 93 Pulse Rate [Right Radial] 81 Respiratory Rate 20 Respiratory Rate 20 Respiratory Rate 20 Respiratory Rate 20 Respiratory Rate 19 Blood Pressure [Right Arm] 172/79 Blood Pressure [Right Arm] 169/82 O2 Sat by Pulse Oximetry 99 O2 Sat by Pulse Oximetry 99 O2 Sat by Pulse Oximetry 98 Intake and Output: Intake & Output 01/05/25 01/06/25 01/07/25 01/08/25 23:59 23:59 23:59 23:59 Intake Total 4081 / 4081 5204 / 5204 4618 / 4618 1211 / 1211 Output Total 3025 / 3025 5650 / 5650 3450 / 3450 4250 / 4250 Balance 1056 / 1056 -446 / -446 1168 / 1168 -3039 / -3039 Physical Exam Oriented: Normal Eyes: Normal Ear: Normal Nose: Normal Throat: Normal Respiratory: Normal Cardiovascular: Normal Auscultation: Bowel Sounds: Normal Palpation: Normal Tenderness: Normal Skin: Tender Musculoskeletal: Left, Elbow, Forearm and Tender Psychiatric: Normal Mood Description: Calm and Appropriate Affect: Normal Speech Pattern: Clear and Appropriate Laboratory and Diagnostics 01/08/25 05:12 01/08/25 05:12 Labs: 12/31/24 11:31 Blood Blood Culture - Final 12/31/24 11:04 Blood Blood Culture - Final 12/31/24 17:18 Arm - Left Wound Gram Stain - Final 12/31/24 17:18 Arm - Left Wound Culture - Final Streptococcus Dysgalactiae 12/31/24 17:19 Arm - Left Wound Culture - Final Streptococcus Dysgalactiae 12/31/24 13:24 Arm - Drainage Wound Gram Stain - Final 12/31/24 13:24 Arm - Drainage Wound Culture - Final Streptococcus Dysgalactiae#2 Staphylococcus Hominis Laboratory WBC 7.4 X10^3/uL (3.6-10.0) 01/08/25 05:12 RBC 3.38 X10^6/uL (4.7-6.0) L 01/08/25 05:12 Hgb 9.3 g/dL (13.5-18.0) L 01/08/25 05:12 Hct 27.3 % (42.0-54.0) L 01/08/25 05:12 MCV 80.8 fL (80.0-100.0) 01/08/25 05:12 MCH 27.5 pg (27.0-34.0) 01/08/25 05:12 MCHC 34.0 g/dL (33.0-35.0) 01/08/25 05:12 RDW 15.7 % (11.6-16.5) 01/08/25 05:12 Plt Count 496 X10^3/uL (150.0-450.0) H 01/08/25 05:12 Plt Count Comment Adequate (ADEQUATE) 01/02/25 04:40 MPV 8.6 fL (7.4-11.0) 01/08/25 05:12 Neut % (Auto) 61.2 % (42.0-75.0) 01/08/25 05:12 Lymph % (Auto) 26.4 % (21.0-51.0) 01/08/25 05:12 [place] % (Auto) 10.0 % (0.0-13.0) 01/08/25 05:12 Eos % (Auto) 1.8 % (0.9-2.9) 01/08/25 05:12 Baso % (Auto) 0.6 % (0.2-1.0) 01/08/25 05:12 Neut # (Auto) 4.6 x10^3/uL (2.2-4.8) 01/08/25 05:12 Lymph # (Auto) 2.0 X10^3/uL (1.3-2.9) 01/08/25 05:12 [place] # (Auto) 0.7 x10^3/uL (0.3-0.8) 01/08/25 05:12 Eos # (Auto) 0.1 x10^3/uL (0.0-0.2) 01/08/25 05:12 Baso # (Auto) 0.0 X10^3/uL (0.0-0.1) 01/08/25 05:12 Absolute Nucleated RBC 0.1 /100WBC 01/08/25 05:12 Total Counted 100 01/02/25 04:40 Neutrophils % (Manual) 71 % (39-76) 01/02/25 04:40 Band Neutrophils % 6 % (0-10) 01/02/25 04:40 Lymphocytes % (Manual) 13 % (13-43) 01/02/25 04:40 Monocytes % (Manual) 9 % (4-9) 01/02/25 04:40 Eosinophils % (Manual) 1 % (0-6) 01/02/25 04:40 Atypical Lymphocytes Few 12/31/24 11:04 Plt Morphology Comment Normal (NORMAL) 01/02/25 04:40 RBC Morphology Normal (NORMAL) 01/02/25 04:40 Sodium 136 mmol/L (136-145) 01/08/25 05:12 Corrected Sodium 136 mmol/L (136-145) 01/08/25 05:12 Potassium 4.4 mmol/L (3.5-5.1) 01/08/25 05:12 Chloride 102 mmol/L (98-107) 01/08/25 05:12 Carbon Dioxide 30.9 mmol/L (21-32) 01/08/25 05:12 BUN 7 mg/dL (7-18) 01/08/25 05:12 Creatinine 0.78 mg/dL (0.70-1.30) 01/08/25 05:12 Est GFR (MDRD) Af Amer > 60 (>60) 01/08/25 05:12 Est GFR (MDRD) Non-Af > 60 (>60) 01/08/25 05:12 Glucose 118 mg/dL (65-99) H 01/08/25 05:12 POC Glucose (mg/dL) 112 mg/dL (65-99) H 01/08/25 05:36 Hemoglobin A1c 12.0 % 12/31/24 19:06 Lactic Acid 1.9 mmol/L (0.4-2.0) 12/31/24 23:21 Calcium 8.1 mg/dL (8.5-10.1) L 01/08/25 05:12 Corrected Calcium 10.1 mg/dL (8.5-10.1) 01/08/25 05:12 Magnesium 2.0 mg/dL (2.0-2.9) 01/08/25 05:12 Total Bilirubin 0.30 mg/dL (0.2-1.0) 01/08/25 05:12 AST 19 Units/L (15-37) 01/08/25 05:12 ALT 27 Units/L (12-78) 01/08/25 05:12 Alkaline Phosphatase 83 Units/L (46-116) 01/08/25 05:12 B-Natriuretic Peptide 93.5 pg/mL (0-79) H 12/31/24 11:04 Total Protein 8.0 g/dL (6.4-8.2) 01/08/25 05:12 Albumin 1.5 g/dL (3.4-5.0) L 01/08/25 05:12 Globulin 6.5 g/dL (2.5-4.5) H 01/08/25 05:12 Albumin/Globulin Ratio 0.2 Ratio (1.1-2.1) L 01/08/25 05:12 Vancomycin Trough 16.2 ug/mL (15-20) 01/07/25 01:44 Random Vancomycin 12.7 ug/mL 01/03/25 18:23 Acetone, Semi-Quant Negative (NEGATIVE) 12/31/24 11:04 Tissue Pathology See comment. 12/31/24 17:20 Plan (1) Necrotizing soft tissue infection: Status: Acute (2) Uncontrolled diabetes mellitus: Status: Chronic Qualifiers: Diabetes mellitus type: type 2 Glycemic state: with hyperglycemia Q ualified Code(s): E11.65 - Type 2 diabetes mellitus with hyperglycemia Plan: SSI (3) Hypokalemia: Status: Acute (4) Hypomagnesemia: Status: Acute (5) Sepsis: Status: Acute Qualifiers: Sepsis acute organ dysfunction status: without acute organ dysfunction Sepsis type: sepsis due to unspecified organism Qualified Code(s): A41.9 - Sepsis, unspecified organism (6) Cellulitis: Status: Acute Qualifiers: Site of cellulitis: extremity Site of cellulitis of extremity: upper extremity Laterality: left Qualified Code(s): L03.114 - Cellulitis of left upper limb
[2025-01-08 11:27] LABS: CREATININE 0.88 mg/dL (0.70-1.30)
--- NOTE | 2025-01-08 15:20 | DR.PROGNOT ---
HOSPITAL PROGRESS NOTE Progress Note for Day of: Progress Note Date: 01/08/25 Chief Complaint Chief Complaint: Left arm pain is less. still with moderate drainage through the dressings . Less edema and has full range of motion of the hand and wrist. Cultures are showing gram-positive cocci and gram-negative bacteria. White count7.4 , Hgb 9.3 blood sugar 118, BUN/creatinine and liver function tests are normal.. Vanco level 14.8 Patient is afebrile 97.9.., the left arm is almost normal size, all distal pulses are positive. Same IV antibiotics ..local care ,arm elevation . Seems to be improving ,no need for surgery now .. . Past Medical Family Social History Allergies: Allergies No Known Allergies Allergy (Verified 12/31/24 13:30) Review Of Systems Changes in ROS: see HPI Vital Signs Vital Signs: Vital Signs Temperature 98.4 F Temperature 98.2 F Temperature 98.2 F Pulse Rate [Right Radial] 74 Pulse Rate [Right Radial] 82 Pulse Rate [Right Radial] 93 Respiratory Rate 20 Respiratory Rate 20 Respiratory Rate 20 Blood Pressure [Right Arm] 149/68 Blood Pressure [Right Arm] 158/70 Blood Pressure [Right Arm] 172/79 O2 Sat by Pulse Oximetry 98 O2 Sat by Pulse Oximetry 99 O2 Sat by Pulse Oximetry 99 Physical Exam Oriented: Normal Eyes: Normal Ear: Normal Nose: Normal Throat: Normal Respiratory: Normal Cardiovascular: Normal : Normal GI:Auscultation: Normal GI:Palpation: Normal GI: Tenderness: Normal Skin: Tender Musculoskeletal: Left, Elbow, Forearm and Tender Psychiatric: Normal Mood Description: Calm and Appropriate Affect: Normal Speech Pattern: Clear and Appropriate Laboratory and Diagnostics 01/08/25 05:12 01/08/25 10:43 Labs: 12/31/24 11:31 Blood Blood Culture - Final 12/31/24 11:04 Blood Blood Culture - Final 12/31/24 17:18 Arm - Left Wound Gram Stain - Final 12/31/24 17:18 Arm - Left Wound Culture - Final Streptococcus Dysgalactiae 12/31/24 17:19 Arm - Left Wound Culture - Final Streptococcus Dysgalactiae 12/31/24 13:24 Arm - Drainage Wound Gram Stain - Final 12/31/24 13:24 Arm - Drainage Wound Culture - Final Streptococcus Dysgalactiae#2 Staphylococcus Hominis Laboratory WBC 7.4 X10^3/uL (3.6-10.0) 01/08/25 05:12 RBC 3.38 X10^6/uL (4.7-6.0) L 01/08/25 05:12 Hgb 9.3 g/dL (13.5-18.0) L 01/08/25 05:12 Hct 27.3 % (42.0-54.0) L 01/08/25 05:12 MCV 80.8 fL (80.0-100.0) 01/08/25 05:12 MCH 27.5 pg (27.0-34.0) 01/08/25 05:12 MCHC 34.0 g/dL (33.0-35.0) 01/08/25 05:12 RDW 15.7 % (11.6-16.5) 01/08/25 05:12 Plt Count 496 X10^3/uL (150.0-450.0) H 01/08/25 05:12 Plt Count Comment Adequate (ADEQUATE) 01/02/25 04:40 MPV 8.6 fL (7.4-11.0) 01/08/25 05:12 Neut % (Auto) 61.2 % (42.0-75.0) 01/08/25 05:12 Lymph % (Auto) 26.4 % (21.0-51.0) 01/08/25 05:12 [place] % (Auto) 10.0 % (0.0-13.0) 01/08/25 05:12 Eos % (Auto) 1.8 % (0.9-2.9) 01/08/25 05:12 Baso % (Auto) 0.6 % (0.2-1.0) 01/08/25 05:12 Neut # (Auto) 4.6 x10^3/uL (2.2-4.8) 01/08/25 05:12 Lymph # (Auto) 2.0 X10^3/uL (1.3-2.9) 01/08/25 05:12 [place] # (Auto) 0.7 x10^3/uL (0.3-0.8) 01/08/25 05:12 Eos # (Auto) 0.1 x10^3/uL (0.0-0.2) 01/08/25 05:12 Baso # (Auto) 0.0 X10^3/uL (0.0-0.1) 01/08/25 05:12 Absolute Nucleated RBC 0.1 /100WBC 01/08/25 05:12 Total Counted 100 01/02/25 04:40 Neutrophils % (Manual) 71 % (39-76) 01/02/25 04:40 Band Neutrophils % 6 % (0-10) 01/02/25 04:40 Lymphocytes % (Manual) 13 % (13-43) 01/02/25 04:40 Monocytes % (Manual) 9 % (4-9) 01/02/25 04:40 Eosinophils % (Manual) 1 % (0-6) 01/02/25 04:40 Atypical Lymphocytes Few 12/31/24 11:04 Plt Morphology Comment Normal (NORMAL) 01/02/25 04:40 RBC Morphology Normal (NORMAL) 01/02/25 04:40 Sodium 136 mmol/L (136-145) 01/08/25 05:12 Corrected Sodium 136 mmol/L (136-145) 01/08/25 05:12 Potassium 4.4 mmol/L (3.5-5.1) 01/08/25 05:12 Chloride 102 mmol/L (98-107) 01/08/25 05:12 Carbon Dioxide 30.9 mmol/L (21-32) 01/08/25 05:12 BUN 7 mg/dL (7-18) 01/08/25 05:12 Creatinine 0.88 mg/dL (0.70-1.30) 01/08/25 10:43 Est GFR (MDRD) Af Amer > 60 (>60) 01/08/25 05:12 Est GFR (MDRD) Non-Af > 60 (>60) 01/08/25 05:12 Glucose 118 mg/dL (65-99) H 01/08/25 05:12 POC Glucose (mg/dL) 149 mg/dL (65-99) H 01/08/25 10:51 Hemoglobin A1c 12.0 % 12/31/24 19:06 Lactic Acid 1.9 mmol/L (0.4-2.0) 12/31/24 23:21 Calcium 8.1 mg/dL (8.5-10.1) L 01/08/25 05:12 Corrected Calcium 10.1 mg/dL (8.5-10.1) 01/08/25 05:12 Magnesium 2.0 mg/dL (2.0-2.9) 01/08/25 05:12 Total Bilirubin 0.30 mg/dL (0.2-1.0) 01/08/25 05:12 AST 19 Units/L (15-37) 01/08/25 05:12 ALT 27 Units/L (12-78) 01/08/25 05:12 Alkaline Phosphatase 83 Units/L (46-116) 01/08/25 05:12 B-Natriuretic Peptide 93.5 pg/mL (0-79) H 12/31/24 11:04 Total Protein 8.0 g/dL (6.4-8.2) 01/08/25 05:12 Albumin 1.5 g/dL (3.4-5.0) L 01/08/25 05:12 Globulin 6.5 g/dL (2.5-4.5) H 01/08/25 05:12 Albumin/Globulin Ratio 0.2 Ratio (1.1-2.1) L 01/08/25 05:12 Vancomycin Trough 16.6 ug/mL (15-20) 01/08/25 10:43 Random Vancomycin 12.7 ug/mL 01/03/25 18:23 Acetone, Semi-Quant Negative (NEGATIVE) 12/31/24 11:04 Tissue Pathology See comment. 12/31/24 17:20 Assessment and Plan 1: Subsiding deep abscesses and cellulitis left arm and forearm with infected skin ulcers. S/p debridement , drainage and packing. On IV antibiotics, local care and arm elevation. 2: Diabetes mellitus, on insulin coverage. Problem Patient Problems: Patient Problems Left arm cellulitis (Acute) L03.114 Sepsis (Acute) A41.9
[2025-01-08] MEDS: GLUCOPHAGE ONE (16:59)
[2025-01-09] MEDS ORDERED: GLUCOPHAGE ONE (03:51)
[2025-01-09 06:00] LABS: MEAN PLATELET VOLUME 8.0 fL (7.4-11.0); RED CELL DISTRIBUTION WIDTH 16.1 % (11.6-16.5)
[2025-01-09 06:19] LABS: COR CA(FOR HYPOALB) 10.0 mg/dL (8.5-10.1); COR NA(FOR HYPERGLY) 138 mmol/L (136-145); CREATININE 0.82 mg/dL (0.70-1.30); eGFR NON BLACK RACES > 60 (>60)
[2025-01-09] MEDS ORDERED: ZESTRIL TAB 20 MG ONE (08:23)
[2025-01-09 08:46] VITALS: BP 160/77; RESP 21; TEMP 97.9
[2025-01-09 09:22] VITALS: PULSE 99; O2SAT 95
--- NOTE | 2025-01-09 10:10 | DR.PROGNOT ---
HOSPITAL PROGRESS NOTE Progress Note for Day of: Progress Note Date: 01/09/25 Chief Complaint Chief Complaint: Less left arm pain still with moderate drainage through the dressings . Less edema and has full range of motion of the hand and wrist. Stiff muscles to external and internal rotation as well as extending the elbow Cultures are showing gram-positive cocci and gram-negative bacteria. White count5.7 , Hgb 9.3 blood sugar 190, BUN/creatinine and liver function tests are normal.. Vanco level 16.6 Patient is afebrile 97.9.., the left arm is almost normal size, all distal pulses are positive. Same IV antibiotics ..local care ,arm elevation . Seems to be improving ,no need for surgery now .. Okay to discharge on oral medications, daily dressing changes and will follow early next week. Past Medical Family Social History Allergies: Allergies No Known Allergies Allergy (Verified 12/31/24 13:30) Review Of Systems Changes in ROS: see HPI Vital Signs Vital Signs: Vital Signs Temperature 97.9 F Temperature 98.5 F Pulse Rate [Right Radial] 86 Pulse Rate [Right Radial] 76 Pulse Rate 99 Respiratory Rate 21 Respiratory Rate 16 Respiratory Rate 19 Respiratory Rate 18 Blood Pressure [Right Arm] 160/77 Blood Pressure [Right Arm] 145/65 O2 Sat by Pulse Oximetry 95 O2 Sat by Pulse Oximetry 98 O2 Sat by Pulse Oximetry 98 Physical Exam Oriented: Normal Eyes: Normal Ear: Normal Nose: Normal Throat: Normal Respiratory: Normal Cardiovascular: Normal : Normal GI:Auscultation: Normal GI:Palpation: Normal GI: Tenderness: Normal Skin: Tender Musculoskeletal: Left, Elbow, Forearm and Tender Psychiatric: Normal Mood Description: Calm and Appropriate Affect: Normal Speech Pattern: Clear and Appropriate Laboratory and Diagnostics 01/09/25 05:12 01/09/25 05:12 Labs: 12/31/24 11:31 Blood Blood Culture - Final 12/31/24 11:04 Blood Blood Culture - Final 12/31/24 17:18 Arm - Left Wound Gram Stain - Final 12/31/24 17:18 Arm - Left Wound Culture - Final Streptococcus Dysgalactiae 12/31/24 17:19 Arm - Left Wound Culture - Final Streptococcus Dysgalactiae 12/31/24 13:24 Arm - Drainage Wound Gram Stain - Final 12/31/24 13:24 Arm - Drainage Wound Culture - Final Streptococcus Dysgalactiae#2 Staphylococcus Hominis Laboratory WBC 5.9 X10^3/uL (3.6-10.0) 01/09/25 05:12 RBC 3.26 X10^6/uL (4.7-6.0) L 01/09/25 05:12 Hgb 9.2 g/dL (13.5-18.0) L 01/09/25 05:12 Hct 26.1 % (42.0-54.0) L 01/09/25 05:12 MCV 80.0 fL (80.0-100.0) 01/09/25 05:12 MCH 28.1 pg (27.0-34.0) 01/09/25 05:12 MCHC 35.1 g/dL (33.0-35.0) H 01/09/25 05:12 RDW 16.1 % (11.6-16.5) 01/09/25 05:12 Plt Count 517 X10^3/uL (150.0-450.0) H 01/09/25 05:12 Plt Count Comment Adequate (ADEQUATE) 01/02/25 04:40 MPV 8.0 fL (7.4-11.0) 01/09/25 05:12 Neut % (Auto) 62.0 % (42.0-75.0) 01/09/25 05:12 Lymph % (Auto) 26.9 % (21.0-51.0) 01/09/25 05:12 [place] % (Auto) 8.5 % (0.0-13.0) 01/09/25 05:12 Eos % (Auto) 1.9 % (0.9-2.9) 01/09/25 05:12 Baso % (Auto) 0.7 % (0.2-1.0) 01/09/25 05:12 Neut # (Auto) 3.7 x10^3/uL (2.2-4.8) 01/09/25 05:12 Lymph # (Auto) 1.6 X10^3/uL (1.3-2.9) 01/09/25 05:12 [place] # (Auto) 0.5 x10^3/uL (0.3-0.8) 01/09/25 05:12 Eos # (Auto) 0.1 x10^3/uL (0.0-0.2) 01/09/25 05:12 Baso # (Auto) 0.0 X10^3/uL (0.0-0.1) 01/09/25 05:12 Absolute Nucleated RBC 0.3 /100WBC 01/09/25 05:12 Total Counted 100 01/02/25 04:40 Neutrophils % (Manual) 71 % (39-76) 01/02/25 04:40 Band Neutrophils % 6 % (0-10) 01/02/25 04:40 Lymphocytes % (Manual) 13 % (13-43) 01/02/25 04:40 Monocytes % (Manual) 9 % (4-9) 01/02/25 04:40 Eosinophils % (Manual) 1 % (0-6) 01/02/25 04:40 Atypical Lymphocytes Few 12/31/24 11:04 Plt Morphology Comment Normal (NORMAL) 01/02/25 04:40 RBC Morphology Normal (NORMAL) 01/02/25 04:40 Sodium 136 mmol/L (136-145) 01/09/25 05:12 Corrected Sodium 138 mmol/L (136-145) 01/09/25 05:12 Potassium 4.3 mmol/L (3.5-5.1) 01/09/25 05:12 Chloride 103 mmol/L (98-107) 01/09/25 05:12 Carbon Dioxide 28.9 mmol/L (21-32) 01/09/25 05:12 BUN 8 mg/dL (7-18) 01/09/25 05:12 Creatinine 0.82 mg/dL (0.70-1.30) 01/09/25 05:12 Est GFR (MDRD) Af Amer > 60 (>60) 01/09/25 05:12 Est GFR (MDRD) Non-Af > 60 (>60) 01/09/25 05:12 Glucose 197 mg/dL (65-99) H 01/09/25 05:12 POC Glucose (mg/dL) 182 mg/dL (65-99) H 01/09/25 05:12 Hemoglobin A1c 12.0 % 12/31/24 19:06 Lactic Acid 1.9 mmol/L (0.4-2.0) 12/31/24 23:21 Calcium 8.2 mg/dL (8.5-10.1) L 01/09/25 05:12 Corrected Calcium 10.0 mg/dL (8.5-10.1) 01/09/25 05:12 Magnesium 2.0 mg/dL (2.0-2.9) 01/08/25 05:12 Total Bilirubin 0.30 mg/dL (0.2-1.0) 01/09/25 05:12 AST 18 Units/L (15-37) 01/09/25 05:12 ALT 25 Units/L (12-78) 01/09/25 05:12 Alkaline Phosphatase 81 Units/L (46-116) 01/09/25 05:12 B-Natriuretic Peptide 93.5 pg/mL (0-79) H 12/31/24 11:04 Total Protein 7.2 g/dL (6.4-8.2) 01/09/25 05:12 Albumin 1.8 g/dL (3.4-5.0) L 01/09/25 05:12 Globulin 5.4 g/dL (2.5-4.5) H 01/09/25 05:12 Albumin/Globulin Ratio 0.3 Ratio (1.1-2.1) L 01/09/25 05:12 Vancomycin Trough 16.6 ug/mL (15-20) 01/08/25 10:43 Random Vancomycin 12.7 ug/mL 01/03/25 18:23 Acetone, Semi-Quant Negative (NEGATIVE) 12/31/24 11:04 Tissue Pathology See comment. 12/31/24 17:20 Assessment and Plan 1: Subsiding deep abscesses and cellulitis left arm and forearm with infected skin ulcers. S/p debridement , drainage and packing. On IV antibiotics, local care and arm elevation. 2: Diabetes mellitus, on insulin coverage. Problem Patient Problems: Patient Problems Left arm cellulitis (Acute) L03.114 Sepsis (Acute) A41.9
== END 2025-01-09 11:55 | disposition home or self-care (01) | DRG 854 ==
LOC: ER 10:07 → MED/SURG 10:07 → OBSVTOIN 13:04 → MED/SURG 13:08
PROVIDERS: ADMIT Family Medicine; ATTEND Family Medicine
DX: B95.7 Other staphylococcus as the cause of diseases classified elsewhere; A41.89 Other specified sepsis; E11.65 Type 2 diabetes mellitus with hyperglycemia; Z29.89 Encounter for other specified prophylactic measures; L02.414 Cutaneous abscess of left upper limb; I10 Essential (primary) hypertension; E83.42 Hypomagnesemia; L03.114 Cellulitis of left upper limb; M79.89 Other specified soft tissue disorders; E87.1 Hypo-osmolality and hyponatremia; Z16.29 Resistance to other single specified antibiotic; B95.1 Streptococcus, group B, as the cause of diseases classified elsewhere; Z59.86 Financial insecurity; M79.602 Pain in left arm